=== PATIENT | male | born 1940 | race Caucasian/White ===

== ENCOUNTER 2017-07-06 07:07 | Emergency (ER) | payer OTHER ==
[~2017-07-06] VITALS: Ht 185.4 cm; Wt 99.8 kg
[~2017-07-06 07:07] MED LIST: ASPIRIN81 MG PO; ATORVASTATIN CA20 MG PO; CITRACAL + D E1 EACH PO; CYMBALTA30 MG PO; DAILY VITAMIN1 EAC3 PO; FISH OIL 1,0001 EAC2 PO; GLUCOSAMINE &1 EAC1 PO; MAGNESIUM250 MG PO; MONTELUKAST SOD10 MG PO; ONGLYZA5 MG PO; PLAVIX75 MG PO; RISPERIDONE0.5 MG PO; VITAMIN D1000 UNIT PO; [UNRECOGNIZED DRUG - OTHER]
--- NOTE | 2017-07-06 08:13 | Diagnostic Imaging Report ---
PROCEDURE:X-RAY CHEST, ONE VIEW COMPARISON:Patients [facility], DX, CHEST SINGLE (PORTABLE), 01/19/2015, 3:15. INDICATIONS:COUGH FINDINGS: There are no consolidations, pleural effusions or pneumothorax. The cardiomediastinal silhouette and pulmonary vasculature are normal. Nodular opacity overlies the left midlung zone that is unchanged and printing sales representative of a calcified pleural plaque. There are no acute osseous abnormalities. Degenerative changes of the spine. CONCLUSION: No acute cardiopulmonary abnormality. Eddie Paul D.O. Dictated by: Eddie Paul D.O. on 07/06/2017 at 8:22 Electronically approved by: Eddie Paul D.O. on 07/06/2017 at 8:22
[2017-07-06 08:37] VITALS: BP 135/86
== END 2017-07-06 08:45 | disposition home or self-care (01) ==
LOC: ER 07:07
DX: J10.1 Influenza due to other identified influenza virus with other respiratory manifestations (principal)
CPT/HCPCS: 71010; 87400; 99283

== ENCOUNTER → 2018-04-06 | Day surgery (SDC) | payer OTHER, MEDICARE ==
[~2018-04-06] MED LIST changes: +CYMBALTA30 MG; +FENTANYL CITRATE/PF 100MCG/2 ML INJ ONE; +FISH OIL 1,0001 EAC2; +FLONASE; +LIVALO2 MG; +LYRICA75 MG; +MIDAZOLAM HCL 2 MG/2 ML VIAL ONE; +OR PHACO EYE KIT ONE; +PREOP PHACO EYE KIT ONE; +VENLAFAXINE HCL75 MG PO
--- OUTSIDE RECORDS SUMMARY | 2018-04-06 09:22 | XMS REPORT ---
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 Allergies, Adverse Reactions, Alerts This patient has no known allergies or adverse reactions. Medications This patient has no known medications. Results Test Description Test Time Test Comments Text Results Atomic Results Result Comments CHEST SINGLE (NOT PORTABLE) [place] [address] Patient Name: LEONILA MARQUEZ MR #: [id number] : 1940 Age/Sex: 76/M Req #: [id number] Adm Physician: Ordered by: LUL GARCIA MD Report #: [id number] Location: ER Room/Bed: Procedure: [id number] DX/CHEST SINGLE (NOT PORTABLE) Exam Date: 07/06/17 Exam Time: 0745 REPORT STATUS: Signed PROCEDURE: X-RAY CHEST, ONE VIEW COMPARISON: [facility], , CHEST SINGLE (PORTABLE), 01/19/2015, 3:15. INDICATIONS: COUGH FINDINGS: There are no consolidations, pleural effusions or pneumothorax. The cardiomediastinal silhouette and pulmonary vasculature are normal. Nodular opacity overlies the left midlung zone that is unchanged and medical claims representative of a calcified pleural plaque. There are no acute osseous abnormalities. Degenerative changes of the spine. CONCLUSION: No acute cardiopulmonary abnormality. Rush Paul D.O. Dictated by: Rush Paul D.O. on 07/06/2017 at 8:22 Electronically approved by: Rush Paul D.O. on 07/06/2017 at 8:22 Dictated By: RUSH PAUL DO 1 Transcribed By: VIKAS on 07/06/17821 COPY TO: LUL GARCIA MD
== END | disposition home or self-care (01) ==
LOC: OR 09:19
PROVIDERS: ATTEND Ophthalmology
DX: H25.12 Age-related nuclear cataract, left eye (principal); G62.89 Other specified polyneuropathies; I25.10 Atherosclerotic heart disease of native coronary artery without angina pectoris; E11.9 Type 2 diabetes mellitus without complications; E78.5 Hyperlipidemia, unspecified; K21.9 Gastro-esophageal reflux disease without esophagitis; F41.9 Anxiety disorder, unspecified; F32.9 Major depressive disorder, single episode, unspecified; Z88.1 Allergy status to other antibiotic agents; Z88.8 Allergy status to other drugs, medicaments and biological substances; Z79.84 Long term (current) use of oral hypoglycemic drugs; Z79.82 Long term (current) use of aspirin; Z86.19 Personal history of other infectious and parasitic diseases; Z87.891 Personal history of nicotine dependence
CPT/HCPCS: 66984; J2250; V2632

== ENCOUNTER 2019-02-14 05:00 | Observation (INO) | payer OTHER, MEDICARE ==
[~2019-02-14] VITALS: Ht 185.4 cm; Wt 102.2 kg
[~2019-02-14 05:00] MED LIST changes: -FENTANYL CITRATE/PF 100MCG/2 ML INJ ONE; -MIDAZOLAM HCL 2 MG/2 ML VIAL ONE; -OR PHACO EYE KIT ONE; -PREOP PHACO EYE KIT ONE
--- OUTSIDE RECORDS SUMMARY | 2019-02-14 05:04 | XMS REPORT | Summary of Care ---
Author Author [facility] Organization [facility] Address Unknown Phone Unavailable Encounter TOMÁS Julien(HANS) [id number] Date(s): 10/11/15 - 10/11/15 [facility] [address] [place] [address]- Discharge Disposition: Home Attending Physician: Dario Ramirez MD Admitting Physician: Dario Ramirez MD Vital Signs Most recent to 1 2 oldest [Reference Range]: Height 182.88 cm (10/11/15 12:51 PM) Temperature Oral 97.4 DegF 97.4 DegF [96.4-99.1 DegF] (10/11/15 4:10 PM) (10/11/15 12:53 PM) Blood Pressure 124/71 mmHg [90-140/60-90 mmHg] (10/11/15 4:10 PM) Systolic Blood 123 mmHg Pressure [90-140 (10/11/15 12:53 PM) mmHg] Diastolic Blood 76 mmHg Pressure [60-90 (10/11/15 12:53 PM) mmHg] Respiratory Rate 16 BRMIN 18 BRMIN [14-20 BRMIN] (10/11/15 4:10 PM) (10/11/15 12:53 PM) Peripheral Pulse 84 bpm 76 bpm Rate [60-100 bpm] (10/11/15 4:10 PM) (10/11/15 12:53 PM) Weight 100 kg (10/11/15 12:51 PM) Body Mass Index 29.9 m2 (10/11/15 12:51 PM) Problem List Condition Effective Dates Status Health Status Informant CAD (coronary Resolved atherosclerotic disease)(Confirmed) H/O: rheumatic Resolved fever(Confirmed) Allergies, Adverse Reactions, Alerts Substance Reaction Severity Status NKDA Active Medications aspirin 81 mg, PO, Daily, 0 Refill(s) Start Date: 10/11/15 Status: Ordered aspirin 81 mg tablet, enteric coated 81 mg, 1 tab, Route: PO, Drug form: ECTAB, Daily, Dosing Weight 100, kg, Start d ate: 10/11/15 14:00:00 CDT, Duration: 30 day, Stop date: 11/10/15 9:00:00 CDT Notes: Do not crush or chew.(Same As: Ecotrin) Start Date: 10/11/15 Stop Date: 10/11/15 Status: Discontinued atropine 0.5 mg, 5 mL, Route: IVP, Drug form: INJ, PRN, PRN Bradycardia, Start date: 10/21 13:19:00 CDT, Duration: 30 day, Stop date: 11/10/15 13:18:00 CDT Start Date: 10/11/15 Stop Date: 10/11/15 Status: Discontinued Cymbalta 30 mg, PO, TID, 0 Refill(s) Start Date: 10/11/15 Status: Ordered Livalo 2 mg oral tablet 2 mg=1 tab, PO, Daily, # 30 tab, 3 Refill(s) Start Date: 10/11/15 Status: Ordered magnesium oxide 250 mg oral tablet 500 mg=2 tab, PO, Daily, # 20 tab, 0 Refill(s) Start Date: 10/11/15 Stop Date: 10/21/15 Status: Ordered Mucinex DM 10 mL, Route: PO, Drug Form: SYRP, Dosing Weight 100, kg, ONCE, Start date: 10/21 18:16:00 CDT, Stop date: 10/11/15 18:16:00 CDT Notes: (dextromethorphan-guaifenesin 10-100mg/5ml 10 ml oral SOLN ud) (Same as: Robitussin DM) Start Date: 10/11/15 Stop Date: 10/11/15 Status: Completed nitroglycerin SL Tab 0.4 mg, 1 tab, Route: SL, Drug form: TAB, Q5Min, Dosing Weight 100, kg, PRN Ches t Pain, Start date: 10/11/15 13:01:00 CDT, Duration: 3 doses or times, Stop date : 11/10/15 13:00:00 CDT Notes: (Same as:Nitroquick, Nitrostat)"Do Not Crush" Sublingual tablet Start Date: 10/11/15 Stop Date: 10/11/15 Status: Discontinued Onglyza 5 mg oral tablet 5 mg=1 tab, PO, Daily, # 30 tab, 3 Refill(s) Start Date: 10/11/15 Stop Date: 11/10/15 Status: Ordered Saline Flush 0.9% 10 ml, Route: IVP, Drug Form: INJ, Dosing Weight 100, kg, PRN, PRN Line Flush, S tart date: 10/11/15 13:01:00 CDT, Duration: 30 day, Stop date: 11/10/15 13:00:00 CDT Notes: (Same as: BD Posiflush) Start Date: 10/11/15 Stop Date: 10/11/15 Status: Discontinued Saline Flush 0.9% 10 ml, Route: IVP, Drug Form: INJ, Dosing Weight 100, kg, Q12H, Start date: 10/21 21:00:00 CDT, Duration: 30 day, Stop date: 11/10/15 9:00:00 CDT Notes: (Same as: BD Posiflush) Start Date: 10/11/15 Stop Date: 10/11/15 Status: Discontinued trazodone 25 mg, 0.5 tab, Route: PO, Drug form: TAB, Bedtime, Dosing Weight 100, kg, PRN S leep, Start date: 10/11/15 13:02:00 CDT, Duration: 30 day, Stop date: 11/10/15 1 3:01:00 CDT, .. Notes: (Same As: Krystal) Start Date: 10/11/15 Stop Date: 10/11/15 Status: Discontinued Tylenol 650 mg, 2 tab, Route: PO, Drug form: TAB, Q6H, Dosing Weight 100, kg, PRN Pain S core 1-5, Start date: 10/11/15 13:02:00 CDT, Duration: 30 day, Stop date: 13:01:00 CDT Notes: Do not exceed 4 gm/day. (Same as: Tylenol) Start Date: 10/11/15 Stop Date: 10/11/15 Status: Discontinued Vitamin B12 1,000 microgram, 0 Refill(s) Start Date: 10/11/15 Status: Ordered Vitamin D3 2,000 IntlUnit, PO, Daily, 0 Refill(s) Start Date: 10/11/15 Status: Ordered Results ELECTROLYTES Most recent to 1 2 oldest [Reference Range]: Sodium Lvl [135-145 139 mEq/L mEq/L] (10/11/15 1:19 PM) Potassium Lvl 4.9 mEq/L [3.5-5.1 mEq/L] (10/11/15 1:19 PM) Chloride Lvl [95-109 104 mEq/L mEq/L] (10/11/15 1:19 PM) CO2 [24-32 mEq/L] 28 mEq/L (10/11/15 1:19 PM) AGAP [10.0-20.0 11.9 mEq/L mEq/L] (10/11/15 1:19 PM) CHEM PANEL Most recent to 1 2 oldest [Reference Range]: Creatinine Lvl 0.95 mg/dL [0.50-1.40 mg/dL] (10/11/15 1:19 PM) eGFR 79 mL/min/1.73m2 1 *NA* (10/11/15 1:19 PM) BUN [7-22 mg/dL] 14 mg/dL (10/11/15 1:19 PM) Glucose Lvl [70-99 94 mg/dL mg/dL] (10/11/15 1:19 PM) Total Protein 7.1 g/dL [6.4-8.4 g/dL] (10/11/15 1:19 PM) Albumin Lvl [3.5-5.0 3.8 g/dL g/dL] (10/11/15 1:19 PM) Globulin [2.0-4.0 3.3 g/dL g/dL] (10/11/15 1:19 PM) A/G Ratio [0.7-1.6] 1.2 (10/11/15 1:19 PM) Calcium Lvl 8.3 mg/dL [8.5-10.5 mg/dL] *LOW* (10/11/15 1:19 PM) ALT [0-65 unit/L] 25 unit/L (10/11/15 1:19 PM) AST [0-37 unit/L] 16 unit/L (10/11/15 1:19 PM) Alk Phos [39-136 76 unit/L unit/L] (10/11/15 1:19 PM) Bili Total [0.2-1.3 0.4 mg/dL mg/dL] (10/11/15 1:19 PM) Bili Direct [0.0-0.3 0.2 mg/dL mg/dL] (10/11/15 1:19 PM) Bili Indirect 0.2 mg/dL [0.0-1.0 mg/dL] (10/11/15 1:19 PM) 1Result Comment: The eGFR is calculated using the CKD-EPI formula. In most young, healthy individuals the eGFR will be >90 mL/min/1.73m2. The eGFR declines with age. An eGFR of 60-89 may be normal in some populations, particularly the elderly, for whom the CKD-EPI formula has not been extensively validated. Use of the eGFR is not recommended in the following populations: Individuals with unstable creatinine concentrations, including patients and those with serious co-morbid conditions. Patients with extremes in muscle mass or diet. The data above are obtained from the National Kidney Disease Education Program ( NKDEP) which additionally recommends that when the eGFR is used in patients with extremes of body mass index for purposes of drug dosing, the eGFR should be mul tiplied by the estimated BMI. CARDIAC ENZYMES Most recent to 1 2 oldest [Reference Range]: Total CK [12-191 101 unit/L 101 unit/L unit/L] (10/11/15 7:13 PM) (10/11/15 1:19 PM) CK MB [0.5-3.6 1.4 ng/mL 1.7 ng/mL ng/mL] (10/11/15 7:13 PM) (10/11/15 1:19 PM) CK MB Index 1.4 1.7 [0.0-2.5] (10/11/15 7:13 PM) (10/11/15 1:19 PM) Troponin-I <0.02 ng/mL <0.02 ng/mL [0.00-0.40 ng/mL] (10/11/15 7:13 PM) (10/11/15 1:19 PM) LIPIDS Most recent to 1 2 oldest [Reference Range]: CHD Risk [4.00-7.30] 5.22 (10/11/15 1:19 PM) Chol [<=199 mg/dL] 193 mg/dL (10/11/15 1:19 PM) Trig [<=149 mg/dL] 338 mg/dL *HI* (10/11/15 1:19 PM) HDL [>=61 mg/dL] 37 mg/dL *LOW* (10/11/15:19 PM) LDL (Calculated) 88 mg/dL [<=99 mg/dL] (10/11/15 1:19 PM) VLDL 68 *NA* (10/11/15 1:19 PM) HEMATOLOGY Most recent to 1 2 oldest [Reference Range]: WBC [3.7-10.4 K/CMM] 7.9 K/CMM (10/11/15 1:19 PM) RBC [4.70-6.10 5.01 M/CMM M/CMM] (10/11/15 1:19 PM) Hgb [14.0-18.0 g/dL] 14.5 g/dL (10/11/15 1:19 PM) Hct [42.0-54.0 %] 44.9 % (10/11/15 1:19 PM) MCV [80.0-94.0 fL] 89.7 fL (10/11/15 1:19 PM) MCH [27.0-31.0 pg] 28.9 pg (10/11/15 1:19 PM) MCHC [32.0-36.0 32.2 g/dL g/dL] (10/11/15 1:19 PM) RDW [11.5-14.5 %] 15.1 % *HI* (10/11/15 1:19 PM) Platelet [133-450 190 K/CMM K/CMM] (10/11/15 1:19 PM) MPV [7.4-10.4 fL] 7.2 fL *LOW* (10/11/15 1:19 PM) Segs [45.0-75.0 %] 60.6 % (10/11/15 1:19 PM) Lymphocytes 16.8 % [20.0-40.0 %] *LOW* (10/11/15 1:19 PM) Monocytes [2.0-12.0 10.4 % %] (10/11/15 1:19 PM) Eosinophils [0.0-4.0 11.4 % %] *HI* (10/11/15 1:19 PM) Basophils [0.0-1.0 0.8 % %] (10/11/15 1:19 PM) Segs-Bands # 4.8 K/CMM [1.5-8.1 K/CMM] (10/11/15 1:19 PM) Lymphocytes # 1.3 K/CMM [1.0-5.5 K/CMM] (10/11/15 1:19 PM) Monocytes # [0.0-0.8 0.8 K/CMM K/CMM] (10/11/15 1:19 PM) Eosinophils # 0.9 K/CMM [0.0-0.5 K/CMM] *HI* (10/11/15 1:19 PM) Basophils # [0.0-0.2 0.1 K/CMM K/CMM] (10/11/15 1:19 PM) PT [12.0-14.7 13.6 seconds seconds] (10/11/15 1:19 PM) INR [0.85-1.17] 1.01 (10/11/15 1:19 PM) PTT [22.9-35.8 39.8 seconds seconds] *HI* (10/11/15 1:19 PM) Immunizations No data available for this section Procedures Procedure Date Related Diagnosis Body Site Hernia repair Stent placement Social History Social History Type Response Alcohol Past Smoking Status Never smoker; Exposure to Tobacco Smoke None; Cigarette Smoking Last 365 Days No; Reg Smoking Cessation Counseling Yes Assessment and Plan Extracted from: Title: Clinical Document Author: Dario Ramirez MD Date: 10/11/15 The patient presented with chest pain and underwent cardiac evaluation. The chest pain resolved and the ECG and cardiac enzymes remained negative. The patient was subsequently discharged home in stable condition. No new meds prescribed at this time Cardiac diet Regular activity F/U in 1-2 weeks in office Addendum We will do echo and other outpt evaluation in office. by Dario Ramirez MD on 10/11/2015 17:48
--- OUTSIDE RECORDS SUMMARY | 2019-02-14 05:04 | XMS REPORT | Continuity of Care Document ---
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) Active Problem 01/24/2019 [facility] Atherosclerosis of coronary artery (disorder) Resolved Problem 01/24/2019 [facility], [facility] History of - rheumatic fever (context-dependent category) Resolved Problem 01/24/2019 [facility], [facility] Nocturia (finding) Active Problem 01/24/2019 [facility] Raised prostate specific antigen (finding) Active Problem 01/24/2019 [facility] Simple obesity (disorder) Active Problem 01/24/2019 [facility] Urge incontinence of urine (finding) Active Problem 01/24/2019 [facility] Urgent desire to urinate (finding) Active Problem 01/24/2019 [facility] LUMBAR STENOSIS Active [facility] PAIN Active [facility] LBP Active [facility] Medications Medication Details Route Status Patient Instructions Ordering Provider Order Date Source Levofloxacin 500 MG Oral Tablet [Levaquin] 500 mg=1 tab, PO, Q24H, Start 3 days prior to procedure, X 5 day, # 5 tab, 0 Refill(s), Pharmacy: [facility] No Longer Active 07/06/2018 [facility] tamsulosin 0.4 mg oral capsule 0.4 mg=1 cap, PO, Daily, # 30 cap, 11 Refill(s), Pharmacy: [facility] [place] Active 07/01/2018 [facility] tamsulosin 0.4 mg oral capsule 0.4 mg=1 cap, PO, Daily, # 30 cap, 6 Refill(s) No Longer Active 06/29/2018 [facility] Fish Oil PO, 0 Refill(s) Active 06/29/2018 [facility] Afrin Pump Mist NASAL, BID, 0 Refill(s) Active 06/29/2018 [facility] cetirizine hydrochloride 10 MG Oral Capsule [Zyrtec] 10 mg=1 cap, PO, Daily, 0 Refill(s) Active 06/29/2018 [facility] Saline Flush 0.9% 10 ml, Route: IVP, Drug Form: INJ, Dosing Weight 100, kg, Q12H, Start date: 10/11/15 21:00:00 CDT, Duration: 30 day, Stop date: 11/10/15 9:00:00 CDTNotes: (Same as: BD Posiflush) Inactive 10/12/2015 [facility] Mucinex DM 10 mL, Route: PO, Drug Form: SYRP, Dosing Weight 100, kg, ONCE, Start date: 10/11/15 18:16:00 CDT, Stop date: 10/11/15 18:16:00 CDTNotes: (dextromethorphan-guaifenesin 10-100mg/5ml 10 ml oral SOLN ud) (Same as: Robitussin DM) Inactive 10/11/2015 [facility] Aspirin 81 MG Enteric Coated Tablet 81 mg, 1 tab, Route: PO, Drug form: ECTAB, Daily, Dosing Weight 100, kg, Start date: 10/11/15 14:00:00 CDT, Duration: 30 day, Stop date: 11/10/15 9:00:00 CDTNotes: Do not crush or chew. (Same As: Ecotrin) Inactive 10/11/2015 [facility] atropine 0.5 mg, 5 mL, Route: IVP, Drug form: INJ, PRN, PRN Bradycardia, Start date: 10/11/15 13:19:00 CDT, Duration: 30 day, Stop date: 11/10/15 13:18:00 CDT Inactive 10/11/2015 [facility] Vitamin B12 1,000 microgram, 0 Refill(s) Active 10/11/2015 [facility] saxagliptin 5 MG Oral Tablet [Onglyza] 5 mg=1 tab, PO, Daily, # 30 tab, 3 Refill(s) Active 10/11/2015 [facility] Aspirin 81 mg, PO, Daily, 0 Refill(s) Active 10/11/2015 [facility] magnesium oxide 250 mg oral tablet 500 mg=2 tab, PO, Daily, # 20 tab, 0 Refill(s) Active 10/11/2015 [facility] Vitamin D3 2,000 IntlUnit, PO, Daily, 0 Refill(s) Active 10/11/2015 [facility] pitavastatin 2 MG Oral Tablet [Livalo] 2 mg=1 tab, PO, Daily, # 30 tab, 3 Refill(s) Active 10/11/2015 [facility] Cymbalta 30 mg, PO, TID, 0 Refill(s) Active 10/11/2015 [facility] Trazodone 25 mg, 0.5 tab, Route: PO, Drug form: TAB, Bedtime, Dosing Weight 100, kg, PRN Sleep, Start date: 10/11/15 13:02:00 CDT, Duration: 30 day, Stop date: 11/10/15 13:01:00 CDT, ..Notes: (Same As: Desyrel) Inactive 10/11/2015 [facility] Tylenol 650 mg, 2 tab, Route: PO, Drug form: TAB, Q6H, Dosing Weight 100, kg, PRN Pain Score 1-5, Start date: 10/11/15 13:02:00 CDT, Duration: 30 day, Stop date: 11/10/15 13:01:00 CDTNotes: Do not exceed 4 gm/day. (Same as: Tylenol) Inactive 10/11/2015 [facility] Saline Flush 0.9% 10 ml, Route: IVP, Drug Form: INJ, Dosing Weight 100, kg, PRN, PRN Line Flush, Start date: 10/11/15 13:01:00 CDT, Duration: 30 day, Stop date: 11/10/15 13:00:00 CDTNotes: (Same as: BD Posiflush) Inactive 10/11/2015 [facility] Nitroglycerin 0.4 mg, 1 tab, Route: SL, Drug form: TAB, Q5Min, Dosing Weight 100, kg, PRN Chest Pain, Start date: 10/11/15 13:01:00 CDT, Duration: 3 doses or times, Stop date: 11/10/15 13:00:00 CDTNotes: (Same as:Nitroquick, Nitrostat) "Do Not Crush" Sublingual tablet Inactive 10/11/2015 [facility] Allergies, Adverse Reactions, Alerts Substance Category Reaction Severity Reaction type Status Date Reported Comments Source No Known Medication Allergies Assertion Drug allergy Medical Group Immunizations No Data Provided for This Section Results Order Name Results Value Reference Range Date Interpretation Comments Source CHEM PANEL eGFR 83 02/25/2017 Result Comment: The eGFR is calculated using the [...] from the National Kidney Disease Education Program (NKDEP) which additionally recommends that when the eGFR is used in patients with extremes of body mass index for purposes of drug dosing, the eGFR should be multiplied by the estimated BMI. [facility] CHEM PANEL POC Creatinine 0.9 0.5 - 1.4 02/25/2017 [facility] CARDIAC ENZYMES CK MB 1.4 0.5 - 3.6 10/12/2015 [facility] CARDIAC ENZYMES CK MB Index 1.4 0.0 - 2.5 10/12/2015 [facility] CARDIAC ENZYMES Total CK 101 12 - 191 10/12/2015 [facility] CARDIAC ENZYMES Troponin-I <0.02 0.00 - 0.40 10/12/2015 [facility] CARDIAC ENZYMES CK MB Index 1.7 0.0 - 2.5 10/11/2015 [facility] CARDIAC ENZYMES Troponin-I <0.02 0.00 - 0.40 10/11/2015 [facility] CARDIAC ENZYMES Total CK 101 12 - 191 10/11/2015 [facility] CARDIAC ENZYMES CK MB 1.7 0.5 - 3.6 10/11/2015 [facility] CHEM PANEL eGFR 79 10/11/2015 Result Comment: The eGFR is calculated using the [...] from the National Kidney Disease Education Program (NKDEP) which additionally recommends that when the eGFR is used in patients with extremes of body mass index for purposes of drug dosing, the eGFR should be multiplied by the estimated BMI. [facility] CHEM PANEL BUN 14 7 - 22 10/11/2015 [facility] CHEM PANEL Glucose Lvl 94 70 - 99 10/11/2015 [facility] CHEM PANEL Sodium Lvl 139 135 - 145 10/11/2015 [facility] CHEM PANEL Creatinine Lvl 0.95 0.50 - 1.40 10/11/2015 [facility] CHEM PANEL Potassium Lvl 4.9 3.5 - 5.1 10/11/2015 [facility] CHEM PANEL CO2 28 24 - 32 10/11/2015 [facility] CHEM PANEL Chloride Lvl 104 95 - 109 10/11/2015 [facility] CHEM PANEL Calcium Lvl 8.3 8.5 - 10.5 10/11/2015 [facility] CHEM PANEL AGAP 11.9 10.0 - 20.0 10/11/2015 [facility] CHEM PANEL Bili Indirect 0.2 0.0 - 1.0 10/11/2015 [facility] CHEM PANEL Globulin 3.3 2.0 - 4.0 10/11/2015 [facility] CHEM PANEL A/G Ratio 1.2 0.7 - 1.6 10/11/2015 [facility] CHEM PANEL Bili Direct 0.2 0.0 - 0.3 10/11/2015 [facility] CHEM PANEL Bili Total 0.4 0.2 - 1.3 10/11/2015 [facility] CHEM PANEL Total Protein 7.1 6.4 - 8.4 10/11/2015 [facility] CHEM PANEL Albumin Lvl 3.8 3.5 - 5.0 10/11/2015 [facility] CHEM PANEL AST 16 0 - 37 10/11/2015 [facility] CHEM PANEL Alk Phos 76 39 - 136 10/11/2015 [facility] CHEM PANEL ALT 25 0 - 65 10/11/2015 [facility] HEMATOLOGY INR 1.01 0.85 - 1.17 10/11/2015 [facility] HEMATOLOGY PT 13.6 12.0 - 14.7 10/11/2015 [facility] HEMATOLOGY PTT 39.8 22.9 - 35.8 10/11/2015 [facility] HEMATOLOGY MCHC 32.2 32.0 - 36.0 10/11/2015 [facility] HEMATOLOGY MCH 28.9 27.0 - 31.0 10/11/2015 [facility] HEMATOLOGY Platelet 190 133 - 450 10/11/2015 [facility] HEMATOLOGY RDW 15.1 11.5 - 14.5 10/11/2015 [facility] HEMATOLOGY MCV 89.7 80.0 - 94.0 10/11/2015 [facility] HEMATOLOGY MPV 7.2 7.4 - 10.4 10/11/2015 [facility] HEMATOLOGY RBC 5.01 4.70 - 6.10 10/11/2015 [facility] HEMATOLOGY WBC 7.9 3.7 - 10.4 10/11/2015 [facility] HEMATOLOGY Hgb 14.5 14.0 - 18.0 10/11/2015 [facility] HEMATOLOGY Hct 44.9 42.0 - 54.0 10/11/2015 [facility] HEMATOLOGY Monocytes # 0.8 0.0 - 0.8 10/11/2015 [facility] HEMATOLOGY Eosinophils # 0.9 0.0 - 0.5 10/11/2015 [facility] HEMATOLOGY Basophils # 0.1 0.0 - 0.2 10/11/2015 [facility] HEMATOLOGY Segs 60.6 45.0 - 75.0 10/11/2015 [facility] HEMATOLOGY Lymphocytes 16.8 20.0 - 40.0 10/11/2015 [facility] HEMATOLOGY Monocytes 10.4 2.0 - 12.0 10/11/2015 [facility] HEMATOLOGY Eosinophils 11.4 0.0 - 4.0 10/11/2015 [facility] HEMATOLOGY Basophils 0.8 0.0 - 1.0 10/11/2015 [facility] HEMATOLOGY Segs-Bands # 4.8 1.5 - 8.1 10/11/2015 [facility] HEMATOLOGY Lymphocytes # 1.3 1.0 - 5.5 10/11/2015 [facility] CHD Risk 5.22 4.00 - 7.30 10/11/2015 [facility] LIPIDS VLDL 68 10/11/2015 [facility] LIPIDS LDL (Calculated) 88 <=99 mg/dL 10/11/2015 [facility] LIPIDS Trig 338 <=149 mg/dL 10/11/2015 [facility] LIPIDS Chol 193 <=199 mg/dL 10/11/2015 [facility] LIPIDS HDL 37 >=61 mg/dL 10/11/2015 [facility] Pathology Reports No Data Provided for This Section Diagnostic Reports Report Value Date Source Abdomen/Pelvis w/wo IV contrast CT Study: Abdomen/Pelvis w/wo IV contrast CT Clinical Indication: ct dlp 2386 mGycm; 100 cc omni IV \\T\\ 25 cc omni PO - weight loss; abdomen pain Comparison: None TECHNIQUE: Multiple axial CT images of the abdomen and pelvis were acquired before and after the administration of intravenous contrast. Oral contrast was administered to the patient. Sagittal and coronal reformatted images were performed. CT Radiation Dose DLP 2386 mGy-cm FINDINGS: The visualized lung bases are clear bilaterally. The liver, gallbladder, pancreas, spleen, kidneys, and adrenal glands have a normal CT appearance. No intrahepatic or extrahepatic biliary duct dilatation is seen. Urinary bladder is unremarkable. Prostate is enlarged. Scattered sigmoid diverticula are seen without inflammatory change to suggest acute diverticulitis. The remaining visualized hollow viscera and appendix are normal in appearance. No free air, free fluid, or pathologic adenopathy is seen. Arterial calcifications are noted. Superficial soft tissues are unremarkable. Degenerative disc disease with advanced facet arthrosis in the lower lumbar spine is seen. IMPRESSION: 1. No acute intra-abdominal/pelvic abnormality. 2. Sigmoid diverticulosis without acute diverticulitis. 3. No evidence of malignancy or metastatic disease to the abdomen/pelvis. SL: [id number] 02/25/2017 [facility] Brain wo contrast CT CT BRAIN WITHOUT CONTRAST INDICATION: Blurry vision; dizziness, Patient states he's almost passed out while driving. Hx of sinus problems and infections., CT DLP: 893 MGY-CM COMPARISON: None DISCUSSION: There are age-appropriate generalized involutional changes of the brain and microangiopathic changes of the white matter. There is no evidence of acute vascular insults, space occupying lesions, hemorrhage, hydrocephalus, midline shift, or extra-axial fluid collections. The calvarium is intact. Mucosal thickening is noted throughout the paranasal sinuses, associated with bony changes of chronic sinusitis. IMPRESSION: Chronic age-related changes of the brain. No acute intracranial abnormalities are visualized. SL:16 06/25/2016 [facility] Spine lumbar wo contrast MRI EXAM: MRI LUMBAR SPINE WITHOUT CONTRAST DATE: 2015 8:10 AM CDT . CLINICAL INDICATION: Low back pain with left-sided sciatica . TECHNIQUE: Multiplanar, multisequence MRI lumbar spine without IV contrast COMPARISON: Unavailable FINDINGS: The lumbar vertebral bodies have normal height, shape, and alignment. There is no worrisome marrow signal abnormality. The conus terminates normally at L1-L2. The paravertebral soft tissues are within normal limits. Disc spaces, spinal canal, and neural foramina: Short lumbar pedicles leading to baseline narrowing of the central canal T12-L1. Intervertebral disc height and signal are maintained. Posterior elements are normal. There is no stenosis. L1-L2. Mild loss of intervertebral disc height with small diffuse disc bulge. Facets are mildly enlarged. Central canal is patent. Lateral recesses are mildly narrowed with disc contacting each descending L2 nerve root. Neural foramina are patent. L2-L3. Intervertebral discs dehydrated without height loss. There is small diffuse disc bulge and small 2 mm asymmetric right subarticular zone protrusion. Facets are hypertrophic with ligamentous redundancy. Central canal measures 8 mm without crowding of the cauda equina. Right lateral recess is narrowed with disc protrusion dorsally displacing the right descending L3 nerve root. There is mild/moderate stenosis of the neural foramina bilaterally without L2 nerve root mass effect. L3-L4. Intervertebral discs dehydrated without substantial height loss. The small diffuse disc bulge. Facets are hypertrophic with ligamentous redundancy. Central canal measures 5 mm with slight crowding of the cauda equina. Lateral recesses are narrowed bilaterally, asymmetric to the right with mild mass effect on each descending L4 nerve root. There is moderate stenosis of the neural foramina, asymmetric to the right with no compression of the L3 nerve roots. L4-L5. There is severe facet hypertrophy asymmetric to the left, including a 6 mm craniocaudal dimension synovial cyst.. Right laminotomy is suspected. There is loss of intervertebral disc height and signal with moderate diffuse disc bulge and superimposed left subarticular zone extrusion measuring 5 mm AP with 14 mm superiorly extruded fragment extending 75% of the L4 vertebral body. Central canal is narrowed to 7 mm without cauda equina crowding. Left lateral recess is completely effaced with mass effect on the left descending L5 and S1 nerve roots. There is moderate to severe stenosis of the neural foramina bilaterally, asymmetric to left. L5-S1. Intervertebral disc height and signal are maintained. Facets are hypertrophic bilaterally.. Central canal measures 9 mm without cauda equina crowding. Lateral recesses are narrowed with disc and facets contacting each S1 nerve root. There is [id number] neural foramen stenosis bilaterally. IMPRESSION: 1. L4-L5 facet hypertrophy, disc bulge, and superior extrusion causes mild, degenerative central canal stenosis and moderate to severe stenosis of the neural foramina bilaterally, asymmetric to left. There is a 6 mm left-sided facet synovial cyst. 2. Moderate L3-L4 central canal stenosis and neural foramen stenosis related to facet hypertrophy 3. Short pedicles 4. Please see additional comments above 2015 [facility] Consultation Notes No Data Provided for This Section Discharge Summaries No Data Provided for This Section History and Physicals No Data Provided for This Section Vital Signs Vital Sign Value Date Comments Source Systolic (mm Hg) 119 07/06/2018 [facility] Diastolic (mm Hg) 67 07/06/2018 [facility] Heart Rate 101 07/06/2018 [facility] Height 182.88 cm 07/06/2018 [facility] Weight 102.415 07/06/2018 [facility] BMI Calculated 30.62 07/06/2018 [facility] Weight 106.449 06/29/2018 [facility] BMI Calculated 31.83 06/29/2018 [facility] Heart Rate 98 06/29/2018 [facility] Systolic (mm Hg) 118 06/29/2018 [facility] Diastolic (mm Hg) 80 06/29/2018 [facility] Height 182.88 cm 06/29/2018 [facility] Heart Rate 84 10/11/2015 [facility] Respitory Rate 16 10/11/2015 [facility] Systolic (mm Hg) 124 10/11/2015 [facility] Diastolic (mm Hg) 71 10/11/2015 [facility] Temperature Oral (F) 97.4 F 10/11/2015 [facility] Diastolic (mm Hg) 76 10/11/2015 [facility] Systolic (mm Hg) 123 10/11/2015 [facility] Temperature Oral (F) 97.4 F 10/11/2015 [facility] Respitory Rate 18 10/11/2015 [facility] Heart Rate 76 10/11/2015 [facility] Height 182.88 cm 10/11/2015 [facility] Weight 100 10/11/2015 [facility] BMI Calculated 29.9 10/11/2015 [facility] Encounters Location Location Details Encounter Type Encounter Number Reason For Visit Attending Provider ADM Date DC Date Status Source [facility] OBS Observation Patient [id number] Dario Ramirez 10/11/2015 10/12/2015 [facility] Di[facility] Services [id number] Almas Manning Jr 2015 11/14/2015 [facility] OP Therapy Patients [id number] Almas Manning Jr 12/26/2015 01/25/2016 [facility] OP Therapy Patients [id number] Almas Manning Jr 01/30/2016 02/29/2016 [facility] OP Therapy Patients [id number] Almas Manning Jr 03/05/2016 04/04/2016 [facility] OP Therapy Patients [id number] Almas Manning Jr 04/09/2016 05/09/2016 [facility] Outpatient [id number] Aslam Arriaga 06/25/2016 06/26/2016 [facility] Outpatient [id number] Aslam Arriaga 02/25/2017 02/26/2017 [facility] [id number] Michael Howepr 03/22/2018 03/22/2018 [facility] Outpatient [id number] TERRIE MARQUEZ 06/29/2018 Active [facility] Urology [facility] Outpatient [id number] Terrie Marquez 06/29/2018 06/30/2018 [facility] Outpatient [id number] NURSE VISIT 07/01/2018 Active [facility] Ambulatory Pre-Reg [id number] Aslam Arriaga 07/01/2018 07/02/2018 [facility] Outpatient [id number] TERRIE MARQUEZ 07/06/2018 Active [facility] Urology [facility] Outpatient [id number] Terrie Marquez 07/06/2018 07/07/2018 [facility] Outpatient [id number] NURSE VISIT 08/13/2018 Active [facility] Outpatient [id number] TERRIE MARQUEZ 08/13/2018 Active [facility] Outpatient [id number] TERRIE MARQUEZ 08/30/2018 Active [facility] Procedures Procedure Code Date Perfomer Comments Source Measurement of post-voiding residual urine and/or bladder capacity by ultrasound, non-imaging 47548 07/01/2018 [facility] Complex uroflowmetry (eg, calibrated electronic equipment) 20696 07/01/2018 [facility] Hernia repair [id number] [facility] Stent placement [id number] [facility] Assessment and Plan Assessment and Plan Date Source Extracted from:Title: Clinical Document Author: Dario Ramirez MD Date: 10/11/15 The patient presented with chest pain and underwent cardiac evaluation. The chest pain resolved and the ECG and cardiac enzymes remained negative. The patient was subsequently discharged home in stable condition. No new meds prescribed at this time Cardiac diet Regular activity F/U in 1-2 weeks in office Addendum by Dario Ramirez MD on 10/11/2015 17:48 We will do echo and other outpt evaluation in office. 10/12/2015 [facility] Plan of Care No Data Provided for This Section Social History Social History Date Source Social History TypeResponse Alcohol Past Smoking Status Never smoker; Exposure to Tobacco Smoke None; Cigarette Smoking Last 365 Days No; Reg Smoking Cessation Counseling Yes 10/11/2015 [facility] Social History TypeResponse Alcohol Past Smoking Status Never smoker; Exposure to Tobacco Smoke None; Cigarette Smoking Last 365 Days No; Reg Smoking Cessation Counseling Yes 10/11/2015 [facility] Social History TypeResponse Alcohol Past Smoking Status Never smoker; Exposure to Tobacco Smoke None; Cigarette Smoking Last 365 Days No; Reg Smoking Cessation Counseling Yes 10/11/2015 [facility] Social History TypeResponse Alcohol Past Smoking Status Never smoker; Exposure to Tobacco Smoke None; Cigarette Smoking Last 365 Days No; Reg Smoking Cessation Counseling Yes entered on: 07/06/18 10/11/2015 [facility] Family History No Data Provided for This Section Advance Directives No Data Provided for This Section Functional Status No Data Provided for This Section
--- OUTSIDE RECORDS SUMMARY | 2019-02-14 05:04 | XMS REPORT | Summary of Care ---
Author Author [facility] Organization [facility] Address Unknown Phone Unavailable Encounter HQ Lila_alvin(FIN) [id number] Date(s): 11/13/15 - 11/13/15 [facility] [place] [address] [place], [place] [address] [phone] Discharge Disposition: Home Attending Physician: Almas Delong MD Vital Signs No data available for this section Problem List Condition Effective Dates Status Health Status Informant CAD (coronary Resolved atherosclerotic disease)(Confirmed) H/O: rheumatic Resolved fever(Confirmed) Allergies, Adverse Reactions, Alerts Substance Reaction Severity Status NKDA Active Medications No data available for this section Results No data available for this section Immunizations No data available for this section Procedures Procedure Date Related Diagnosis Body Site Hernia repair Stent placement Social History Social History Type Response Alcohol Past Smoking Status Never smoker; Exposure to Tobacco Smoke None; Cigarette Smoking Last 365 Days No; Reg Smoking Cessation Counseling Yes Assessment and Plan No data available for this section
--- OUTSIDE RECORDS SUMMARY | 2019-02-14 05:04 | XMS REPORT | Summary of Care ---
Author Author [facility] Address Unknown Phone Unavailable Encounter HQ Candicer_alvin(FIN) [id number] Date(s): 12/26/15 - 01/24/16 [facility] Discharge Disposition: Home or Self Care Attending Physician: Amlas Delong MD Vital Signs No data available [...]
--- OUTSIDE RECORDS SUMMARY | 2019-02-14 05:04 | XMS REPORT | Summary of Care ---
Author Author [facility] Address Unknown Phone Unavailable Encounter HQ Lila_alvin(FIN) [id number] Date(s): 01/30/16 - 02/28/16 [facility] Discharge Disposition: Home or Self Care Attending Physician: Almas Delong MD Vital Signs [...]
--- OUTSIDE RECORDS SUMMARY | 2019-02-14 05:05 | XMS REPORT | Summary of Care ---
Author Author [facility] Organization [facility] Address Unknown Phone Unavailable Encounter HQ Lila_alvin(FIN) [id number] Date(s): 03/22/18 - 03/22/18 [facility] [address] [place], [place] [id number]- Attending Physician: Michael Clifford MD Referring Physician: West Arriaga MD Vital Signs No data available for this section Problem List Condition Effective Dates Status Health Status Informant 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) H/O: rheumatic Resolved fever(Confirmed) Nocturia(Confirmed) Active Elevated Active PSA(Confirmed) Simple Active obesity(Confirmed) Urinary Active incontinence, urge(Confirmed) Urinary Active urgency(Confirmed) Allergies, Adverse Reactions, Alerts No Known Medication Allergies Medications No data available for this section Results No data available for this section Immunizations No data available for this section Procedures Procedure Date Related Diagnosis Body Site Status Hernia repair Completed Stent placement Completed Social History Social History Type Response Alcohol Past Smoking Status Never smoker; Exposure to Tobacco Smoke None; Cigarette Smoking Last 365 Days No; Reg Smoking Cessation Counseling Yes entered on: 07/06/18 Assessment and Plan No data available for this section
--- OUTSIDE RECORDS SUMMARY | 2019-02-14 05:05 | XMS REPORT | Summary of Care ---
Author Author [facility] Organization [facility] Address Unknown Phone Unavailable Encounter HQ Wily(FIN) [id number] Date(s): 06/29/18 - 06/29/18 [facility] [address] [place] [address]- Discharge Disposition: Home or Self Care Attending Physician: Vic Marquez MD Referring Physician: West Arriaga MD Vital Signs Most recent to 1 oldest [Reference Range]: Height 182.88 cm (06/29/18 8:55 AM) Blood Pressure 118/80 mmHg [90-140/60-90 mmHg] (06/29/18 8:55 AM) Peripheral Pulse 98 bpm Rate [60-100 bpm] (06/29/18 8:55 AM) Weight 106.449 kg (06/29/18 8:55 AM) Body Mass Index 31.83 m2 (06/29/18 8:55 AM) Problem List Condition Effective Dates Status Health Status Informant 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) H/O: rheumatic Resolved fever(Confirmed) Nocturia(Confirmed) Active Elevated Active PSA(Confirmed) Simple Active obesity(Confirmed) Urinary Active incontinence, urge(Confirmed) Urinary Active urgency(Confirmed) Allergies, Adverse Reactions, Alerts No Known Medication Allergies Medications Afrin Pump Mist NASAL, BID, 0 Refill(s) Start Date: 06/29/18 Status: Ordered Fish Oil PO, 0 Refill(s) Start Date: 06/29/18 Status: Ordered tamsulosin 0.4 mg oral capsule 0.4 mg=1 cap, PO, Daily, # 30 cap, 6 Refill(s) Start Date: 06/29/18 Stop Date: 07/01/18 Status: Completed ZyrTEC Liquid Gels 10 mg oral capsule 10 mg=1 cap, PO, Daily, 0 Refill(s) Start Date: 06/29/18 Status: Ordered Results No data available for this section [...]
--- OUTSIDE RECORDS SUMMARY | 2019-02-14 05:05 | XMS REPORT | Summary of Care ---
Author Author [facility] Organization [facility] Address Unknown Phone Unavailable Encounter TOMÁS Julien(HANS) [id number] Date(s): 02/25/17 - 02/25/17 [facility] [address] [place] [address]- [phone] Discharge Disposition: Home or Self Care Attending Physician: West Arriaga MD Referring Physician: West Arriaga MD Vital Signs No data available for this section Problem List Condition Effective Dates Status Health Status Informant CAD (coronary Resolved atherosclerotic disease)(Confirmed) H/O: rheumatic Resolved fever(Confirmed) Allergies, Adverse Reactions, Alerts Substance Reaction Severity Status NKDA Active Medications No data available for this section Results CHEM PANEL Most recent to 1 oldest [Reference Range]: eGFR 83 mL/min/1.73m2 1 *NA* (02/25/17 10:07 AM) POC Creatinine 0.9 mg/dL [0.5-1.4 mg/dL] (02/25/17 10:07 AM) 1Result Comment: The eGFR is calculated using [...] be mul tiplied by the estimated BMI. Immunizations No data available for this section Procedures Procedure Date Related Diagnosis Body Site Hernia repair Stent placement Social History Social History Type Response Alcohol Past Smoking Status Never smoker; Exposure to Tobacco Smoke None; Cigarette Smoking Last 365 Days No; Reg Smoking Cessation Counseling Yes Assessment and Plan No data available for this section
--- OUTSIDE RECORDS SUMMARY | 2019-02-14 05:05 | XMS REPORT | Summary of Care ---
Author Author [facility] Organization [facility] Address Unknown Phone Unavailable Encounter TOMÁS Julien(FIN) [id number] Date(s): 07/06/18 - 07/06/18 [facility] [address] [place] [address]- Discharge Disposition: Home or Self Care Attending Physician: Vic Marquez MD Referring Physician: West Arriaga MD Vital Signs Most recent to 1 oldest [Reference Range]: Height 182.88 cm (07/06/18 10:47 AM) Blood Pressure 119/67 mmHg [90-140/60-90 mmHg] (07/06/18 10:47 AM) Peripheral Pulse 101 bpm Rate [60-100 bpm] *HI* (07/06/18 10:47 AM) Weight 102.415 kg (07/06/18 10:47 AM) Body Mass Index 30.62 m2 (07/06/18 10:47 AM) Problem List Condition Effective Dates Status Health Status Informant 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) H/O: rheumatic Resolved fever(Confirmed) Nocturia(Confirmed) Active Elevated Active PSA(Confirmed) Simple Active obesity(Confirmed) Urinary Active incontinence, urge(Confirmed) Urinary Active urgency(Confirmed) Allergies, Adverse Reactions, Alerts No Known Medication Allergies Medications Levaquin 500 mg oral tablet 500 mg=1 tab, PO, Q24H, Start 3 days prior to procedure, X 5 day, # 5 tab, 0 Ref ill(s), Pharmacy: [facility] Start Date: 07/06/18 Stop Date: 07/11/18 Status: Completed tamsulosin 0.4 mg oral capsule 0.4 mg=1 cap, PO, Daily, # 30 cap, 11 Refill(s), Pharmacy: [facility] k Start Date: 07/01/18 Status: Ordered Results No data available for [...]
--- OUTSIDE RECORDS SUMMARY | 2019-02-14 05:05 | XMS REPORT | Summary of Care ---
Author Author [facility] Organization [facility] Address Unknown Phone Unavailable Encounter HQ Wily(HANS) [id number] Date(s): 06/25/16 - 06/25/16 [facility] [address] [place] [address] Discharge Disposition: Home or Self Care Attending Physician: West Arriaga MD Admitting Physician: West Arriaga MD Referring Physician: West [...]
--- OUTSIDE RECORDS SUMMARY | 2019-02-14 05:05 | XMS REPORT | Summary of Care ---
Author Author [facility] Address Unknown Phone Unavailable Encounter HQ Candicer_alvin(FIN) [id number] Date(s): 04/09/16 - 05/08/16 [facility] Discharge Disposition: Home or Self Care [...]
--- OUTSIDE RECORDS SUMMARY | 2019-02-14 05:05 | XMS REPORT | Summary of Care ---
Author Author [facility] Address Unknown Phone Unavailable Encounter HQ Candicer_alvin(FIN) [id number] Date(s): 03/05/16 - 04/03/16 [facility] Discharge Disposition: Home or Self Care Attending [...]
--- OUTSIDE RECORDS SUMMARY | 2019-02-14 05:05 | XMS REPORT | Summary of Care ---
Author Author [facility] Urology [facility] Organization [facility] Address Unknown Phone Unavailable Encounter HQ Encntr_alirudy(FIN) [id number] Date(s): 07/01/18 - 07/01/18 [facility] [address] [place] [address] [phone] Discharge Disposition: Home or Self Care Attending [...] Procedure Date Related Diagnosis Body Site Status Complex uroflowmetry (eg, calibrated 07/01/18 Completed electronic equipment) Measurement of post-voiding residual urine 07/01/18 Completed and/or bladder capacity by ultrasound, non-imaging Hernia repair Completed Stent placement Completed Social History Social History Type Response Alcohol Past Smoking Status Never smoker; Exposure to Tobacco Smoke None; Cigarette Smoking Last 365 Days No; Reg Smoking Cessation Counseling Yes entered on: 07/06/18 Assessment and Plan No data available for this section
[2019-02-14 05:43] LABS: BASOPHILS # (AUTO) 0.1 (0.0-0.1); EOSINOPHILS # (AUTO) 0.4 (0.0-0.4); HEMATOCRIT 43.5 % (38.2-49.6); HEMOGLOBIN 14.4 g/dL (14.0-18.0); LYMPHOCYTES # (AUTO) 2.1 (1.0-3.2); LYMPHOCYTES % 36.7 % (18.0-39.1); MEAN CORPUSCULAR HEMOGLOBIN 29.2 pg (28-32); MEAN CORPUSCULAR HGB CONC 33.1 g/dL (31-35); MEAN CORPUSCULAR VOLUME 88.2 fL (81-99); MONOCYTES # (AUTO) 0.6 (0.2-0.8); NEUTROPHILS # (AUTO) 2.5 (2.1-6.9); PLATELET COUNT 214 x10e3/uL (140-360); RED BLOOD COUNT 4.93 x10e6/uL (4.3-5.7)
[2019-02-14 05:58] LABS: INR 0.88; PROTHROMBIN TIME 12.4 seconds (11.9-14.5)
--- NOTE | 2019-02-14 05:58 | Diagnostic Imaging Report ---
History:Left arm numbness Comparison studies:None Technique: Axial images were obtained from the skull base to the vertex. Coronal and sagittal images reconstructed from the axial data. Intravenous contrast: None Dose modulation, iterative reconstruction, and/or weight based adjustment of the mA/kV was utilized to reduce the radiation dose to as low as reasonably achievable. Findings: Scalp/skull: No abnormalities. Extra-axial spaces: No masses. No fluid collections. Brain sulci: Mildly prominent. Ventricles: Mild compensatory dilatation. No hydrocephalus. Parenchyma: Few hypodensities in the supratentorial white matter are small vessel ischemic changes. No masses, hemorrhage, acute or chronic cortical vascular insults. Sellar/suprasellar region: No abnormalities. Craniocervical junction: Patent foramen magnum. No Chiari one malformation. Incidental findings: Atherosclerotic calcifications in the carotid siphons . Impression: No acute abnormalities. Chronic findings: 1. Mild generalized volume loss. 2. Mild supratentorial white matter small vessel ischemic changes. Signed by: DR Reji Hall M.D. on 02/14/2019 5:54 AM
[2019-02-14 05:59] LABS: PARTIAL THROMBOPLASTIN TIME 36.1 seconds (23.8-35.5)
[2019-02-14 06:13] LABS: ALANINE AMINOTRANSFERASE 36 IU/L (0-55); ALBUMIN 3.4 g/dL (3.5-5.0); ALKALINE PHOSPHATASE 77 IU/L (40-150); BLOOD UREA NITROGEN 13 mg/dL (7-26); BUN/CREATININE RATIO 15 (6-25); CALCIUM 9.2 mg/dL (8.4-10.2); CARBON DIOXIDE 24 mmol/L (22-29); CHLORIDE 101 mmol/L (98-107); CREATINE KINASE 56 IU/L (30-200); CREATININE, SERUM 0.85 mg/dL (0.72-1.25); EST GLOMERULAR FILTRATION RATE > 60 ML/MIN (60-); GLUCOSE 94 mg/dL (74-118); SODIUM 135 mmol/L (136-145)
[2019-02-14] MEDS ORDERED: ONDANSETRON HCL INJ 2MG/ML 2ML 2 MG/ML VIAL IV PRN (07:45)
[2019-02-14] MEDS ORDERED: FOLIC ACID 5 MG/ML VIAL IV ONE (07:45)
[2019-02-14] MEDS ORDERED: METOPROLOL TARTRATE 25 MG TAB PO SCH (07:45)
--- OUTSIDE RECORDS SUMMARY | 2019-02-14 08:01 | XMS REPORT | Continuity of Care Document ---
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 Phone [employer] Unavailable Unavailable Problems Problem Status Onset Date Classification Date Reported Comments Source DX: WEIGHT LOSS / ABD PAIN Active 02/19/2017 [facility] DX: BLURRED VISION, DIZZINESS Active 06/20/2016 [facility] M99.83 - OTHER BIOMECHANICAL LESIONS OF Active 10/31/2015 [facility] [place] CHEST PAIN Active 10/11/2015 [facility] Benign prostatic hypertroph with outflow obstruction (disorder) Active Problem 01/24/2019 [facility] Atherosclerosis of coronary artery (disorder) Resolved Problem 01/24/2019 [facility], [facility]D [place],[facility] History of - rheumatic fever (context-dependent category) Resolved Problem 01/24/2019 [facility], [facility] [place],[facility] Nocturia (finding) Active Problem 01/24/2019 [facility] Raised prostate specific antigen (finding) Active Problem 01/24/2019 [facility] Simple obesity (disorder) Active Problem 01/24/2019 [facility] Urge incontinence of urine (finding) Active Problem 01/24/2019 [facility] Urgent desire to urinate (finding) Active Problem 01/24/2019 [facility] LUMBAR STENOSIS Active [facility] PAIN Active [facility] LBP Active [facility] Medications Medication Details Route Status Patient Instructions Ordering Provider Order Date Source Levofloxacin 500 MG Oral Tablet [Levaquin] 500 mg=1 tab, PO, Q24H, Start 3 days prior to procedure, X 5 day, # 5 tab, 0 Refill(s), Pharmacy: [facility] No Longer Active 07/06/2018 [facility] tamsulosin 0.4 mg oral capsule 0.4 mg=1 cap, PO, Daily, # 30 cap, 11 Refill(s), Pharmacy: [facility] [place] Active 07/01/2018 [facility] tamsulosin 0.4 mg oral capsule 0.4 mg=1 cap, PO, Daily, # 30 cap, 6 Refill(s) No Longer Active 06/29/2018 [facility] Fish Oil PO, 0 Refill(s) Active 06/29/2018 [facility] Afrin Pump Mist NASAL, BID, 0 Refill(s) Active 06/29/2018 [facility] cetirizine hydrochloride 10 MG Oral Capsule [Zyrtec] 10 mg=1 cap, PO, Daily, 0 Refill(s) Active 06/29/2018 [facility] Saline Flush 0.9% 10 ml, Route: IVP, Drug Form: INJ, Dosing Weight 100, kg, Q12H, Start date: 10/11/15 21:00:00 CDT, Duration: 30 day, Stop date: 11/10/15 9:00:00 CDTNotes: (Same as: BD Posiflush) Inactive 10/12/2015 [facility] Mucinex DM 10 mL, Route: PO, Drug Form: SYRP, Dosing Weight 100, kg, ONCE, Start date: 10/11/15 18:16:00 CDT, Stop date: 10/11/15 18:16:00 CDTNotes: (dextromethorphan-guaifenesin 10-100mg/5ml 10 ml oral SOLN ud) (Same as: Robitussin DM) Inactive 10/11/2015 [facility] Aspirin 81 MG Enteric Coated Tablet 81 mg, 1 tab, Route: PO, Drug form: ECTAB, Daily, Dosing Weight 100, kg, Start date: 10/11/15 14:00:00 CDT, Duration: 30 day, Stop date: 11/10/15 9:00:00 CDTNotes: Do not crush or chew. (Same As: Ecotrin) Inactive 10/11/2015 [facility] atropine 0.5 mg, 5 mL, Route: IVP, Drug form: INJ, PRN, PRN Bradycardia, Start date: 10/11/15 13:19:00 CDT, Duration: 30 day, Stop date: 11/10/15 13:18:00 CDT Inactive 10/11/2015 [facility] Vitamin B12 1,000 microgram, 0 Refill(s) Active 10/11/2015 [facility] saxagliptin 5 MG Oral Tablet [Onglyza] 5 mg=1 tab, PO, Daily, # 30 tab, 3 Refill(s) Active 10/11/2015 [facility] Aspirin 81 mg, PO, Daily, 0 Refill(s) Active 10/11/2015 [facility] magnesium oxide 250 mg oral tablet 500 mg=2 tab, PO, Daily, # 20 tab, 0 Refill(s) Active 10/11/2015 [facility] Vitamin D3 2,000 IntlUnit, PO, Daily, 0 Refill(s) Active 10/11/2015 [facility] pitavastatin 2 MG Oral Tablet [Livalo] 2 mg=1 tab, PO, Daily, # 30 tab, 3 Refill(s) Active 10/11/2015 [facility] Cymbalta 30 mg, PO, TID, 0 Refill(s) Active 10/11/2015 [facility] Trazodone 25 mg, 0.5 tab, Route: PO, Drug form: TAB, Bedtime, Dosing Weight 100, kg, PRN Sleep, Start date: 10/11/15 13:02:00 CDT, Duration: 30 day, Stop date: 11/10/15 13:01:00 CDT, ..Notes: (Same As: Desyrel) Inactive 10/11/2015 [facility] Tylenol 650 mg, 2 tab, Route: PO, Drug form: TAB, Q6H, Dosing Weight 100, kg, PRN Pain Score 1-5, Start date: 10/11/15 13:02:00 CDT, Duration: 30 day, Stop date: 11/10/15 13:01:00 CDTNotes: Do not exceed 4 gm/day. (Same as: Tylenol) Inactive 10/11/2015 [facility] Saline Flush 0.9% 10 ml, Route: IVP, Drug Form: INJ, Dosing Weight 100, kg, PRN, PRN Line Flush, Start date: 10/11/15 13:01:00 CDT, Duration: 30 day, Stop date: 11/10/15 13:00:00 CDTNotes: (Same as: BD Posiflush) Inactive 10/11/2015 [facility] Nitroglycerin 0.4 mg, 1 tab, Route: SL, Drug form: TAB, Q5Min, Dosing Weight 100, kg, PRN Chest Pain, Start date: 10/11/15 13:01:00 CDT, Duration: 3 doses or times, Stop date: 11/10/15 13:00:00 CDTNotes: (Same as:Nitroquick, Nitrostat) "Do Not Crush" Sublingual tablet Inactive 10/11/2015 [facility] Allergies, Adverse Reactions, Alerts Substance Category [...] should be multiplied by the estimated BMI. [facility] CHEM PANEL POC Creatinine 0.9 0.5 - 1.4 02/25/2017 [facility] CARDIAC ENZYMES CK MB 1.4 0.5 - 3.6 10/12/2015 [facility] CARDIAC ENZYMES CK MB Index 1.4 0.0 - 2.5 10/12/2015 [facility] CARDIAC ENZYMES Total CK 101 12 - 191 10/12/2015 [facility] CARDIAC ENZYMES Troponin-I <0.02 0.00 - 0.40 10/12/2015 [facility] CARDIAC ENZYMES CK MB Index 1.7 0.0 - 2.5 10/11/2015 [facility] CARDIAC ENZYMES Troponin-I <0.02 0.00 - 0.40 10/11/2015 [facility] CARDIAC ENZYMES Total CK 101 12 - 191 10/11/2015 [facility] CARDIAC ENZYMES CK MB 1.7 0.5 - 3.6 10/11/2015 [facility] CHEM PANEL eGFR 79 10/11/2015 Result [...] Sodium Lvl 139 135 - 145 10/11/2015 [facility] CHEM PANEL Creatinine Lvl 0.95 0.50 - 1.40 10/11/2015 [facility] PANEL Potassium Lvl 4.9 3.5 - 5.1 10/11/2015 [facility] CHEM PANEL CO2 28 24 - 32 10/11/2015 [facility] CHEM PANEL Chloride Lvl 104 95 - 109 10/11/2015 [facility] CHEM PANEL Calcium Lvl 8.3 8.5 - 10.5 10/11/2015 [facility] CHEM PANEL AGAP 11.9 10.0 - 20.0 10/11/2015 [facility] CHEM PANEL Bili Indirect 0.2 0.0 - 1.0 10/11/2015 [facility] CHEM PANEL Globulin 3.3 2.0 - 4.0 10/11/2015 [facility] CHEM PANEL A/G Ratio 1.2 0.7 - 1.6 10/11/2015 [facility] CHEM PANEL Bili Direct 0.2 0.0 - 0.3 10/11/2015 [facility] CHEM PANEL Bili Total 0.4 0.2 - 1.3 10/11/2015 [facility] CHEM PANEL Total Protein 7.1 6.4 - 8.4 10/11/2015 [facility] CHEM PANEL Albumin Lvl 3.8 3.5 - 5.0 10/11/2015 [facility] CHEM PANEL AST 16 0 - 37 10/11/2015 [facility] CHEM PANEL Alk Phos 76 39 - 136 10/11/2015 [facility] CHEM PANEL ALT 25 0 - 65 10/11/2015 [facility] HEMATOLOGY INR 1.01 0.85 - 1.17 10/11/2015 [facility] HEMATOLOGY PT 13.6 12.0 - 14.7 10/11/2015 [facility] HEMATOLOGY PTT 39.8 22.9 - 35.8 10/11/2015 [facility] HEMATOLOGY MCHC 32.2 32.0 - 36.0 10/11/2015 [facility] HEMATOLOGY MCH 28.9 27.0 - 31.0 10/11/2015 [facility] HEMATOLOGY Platelet 190 133 - 450 10/11/2015 [facility] HEMATOLOGY RDW 15.1 11.5 - 14.5 10/11/2015 [facility] HEMATOLOGY MCV 89.7 80.0 - 94.0 10/11/2015 [facility] HEMATOLOGY MPV 7.2 7.4 - 10.4 10/11/2015 [facility] HEMATOLOGY RBC 5.01 4.70 - 6.10 10/11/2015 [facility] HEMATOLOGY WBC 7.9 3.7 - 10.4 10/11/2015 [facility] HEMATOLOGY Hgb 14.5 14.0 - 18.0 10/11/2015 [facility] HEMATOLOGY Hct 44.9 42.0 - 54.0 10/11/2015 [facility] HEMATOLOGY Monocytes # 0.8 0.0 - 0.8 10/11/2015 [facility] HEMATOLOGY Eosinophils # 0.9 0.0 - 0.5 10/11/2015 [facility] HEMATOLOGY Basophils # 0.1 0.0 - 0.2 10/11/2015 [facility] HEMATOLOGY Segs 60.6 45.0 - 75.0 10/11/2015 [facility] HEMATOLOGY Lymphocytes 16.8 20.0 - 40.0 10/11/2015 [facility] HEMATOLOGY Monocytes 10.4 2.0 - 12.0 10/11/2015 [facility] HEMATOLOGY Eosinophils 11.4 0.0 - 4.0 10/11/2015 [facility] HEMATOLOGY Basophils 0.8 0.0 - 1.0 10/11/2015 [facility] HEMATOLOGY Segs-Bands # 4.8 1.5 - 8.1 10/11/2015 [facility] HEMATOLOGY Lymphocytes # 1.3 1.0 - 5.5 10/11/2015 [facility] LIPIDS CHD Risk 5.22 4.00 - 7.30 10/11/2015 [facility] LIPIDS VLDL 68 10/11/2015 [facility] LIPIDS LDL (Calculated) 88 <=99 mg/dL 10/11/2015 [facility] LIPIDS Trig 338 <=149 mg/dL 10/11/2015 [facility] LIPIDS Chol 193 <=199 mg/dL 10/11/2015 [facility] LIPIDS HDL 37 >=61 mg/dL 10/11/2015 [facility] Pathology Reports No Data Provided for [...] or metastatic disease to the abdomen/pelvis. SL: [id number] 02/25/2017 [facility] Brain wo contrast CT CT BRAIN [...] acute intracranial abnormalities are visualized. SL:16 06/25/2016 [facility] Spine lumbar wo contrast MRI EXAM: [...] contacting each S1 nerve root. There is [id number] neural foramen stenosis bilaterally. IMPRESSION: 1. L4-L5 [...] Please see additional comments above 2015 MEND[facility] Perez Consultation Notes No Data Provided for This [...] 06/29/2018 [facility] Heart Rate 84 10/11/2015 [facility] Respitory Rate 16 10/11/2015 [facility] Systolic (mm Hg) 124 10/11/2015 [facility] Diastolic (mm Hg) 71 10/11/2015 [facility] Temperature Oral (F) 97.4 F 10/11/2015 [facility] Diastolic (mm Hg) 76 10/11/2015 [facility] Systolic (mm Hg) 123 10/11/2015 [facility] Temperature Oral (F) 97.4 F 10/11/2015 [facility] Respitory Rate 18 10/11/2015 [facility] Heart Rate 76 10/11/2015 [facility] Height 182.88 cm 10/11/2015 [facility] Weight 100 10/11/2015 [facility] BMI Calculated 29.9 10/11/2015 [facility] Encounters Location Location Details Encounter Type Encounter Number Reason For Visit Attending Provider ADM Date DC Date Status Source [facility] OBS Observation Patient [id number] Dario Ramirez 10/11/2015 10/12/2015 [facility] [place] [facility] [id number] Almas Manning Jr 2015 11/14/2015 [facility] [place] [facility] OP Therapy Patients [id number] Almas Manning Jr 12/26/2015 01/25/2016 [facility] OP Therapy Patients [id number] Almas Manning Jr 01/30/2016 02/29/2016 [facility] OP Therapy Patients [id number] Almas Manning Jr 03/05/2016 04/04/2016 [facility] OP Therapy Patients [id number] Almas Manning Jr 04/09/2016 05/09/2016 [facility] Outpatient [id number] Aslam Arriaga 06/25/2016 06/26/2016 [facility] Outpatient [id number] Aslam Arriaga 02/25/2017 02/26/2017 [facility] [id number] Michael Howema 03/22/2018 03/22/2018 [facility] Outpatient [id number] TERRIE MARQUEZ 06/29/2018 Active [facility] Urology [facility] Outpatient [id number] Terrie Marquez 06/29/2018 06/30/2018 [facility] Outpatient [id number] NURSE VISIT 07/01/2018 Active [facility] Ambulatory Pre-Reg [id number] Aslam Arriaga 07/01/2018 07/02/2018 [facility] Outpatient [id number] TERRIE MARQUEZ 07/06/2018 Active [facility] Urology [facility] Outpatient [id number] Terrie Marquez 07/06/2018 07/07/2018 [facility] Outpatient [id number] NURSE VISIT 08/13/2018 Active [facility] Outpatient [id number] TERRIE MARQUEZ 08/13/2018 Active [facility] Outpatient [id number] TERRIE MARQUEZ 08/30/2018 Active [facility] Procedures Procedure Code Date Perfomer Comments Source Measurement of post-voiding residual urine and/or bladder capacity by ultrasound, non-imaging [id number] 07/01/2018 [facility] Complex uroflowmetry (eg, calibrated electronic equipment) [id number] 07/01/2018 [facility] Hernia repair [id number] [facility] Stent placement [id number] [facility] Assessment and Plan Assessment and Plan Date [...] and other outpt evaluation in office. 10/12/2015 [facility] Plan of Care No Data Provided [...] No; Reg Smoking Cessation Counseling Yes 10/11/2015 [facility] Social History TypeResponse Alcohol Past Smoking Status Never smoker; Exposure to Tobacco Smoke None; Cigarette Smoking Last 365 Days No; Reg Smoking Cessation Counseling Yes 10/11/[address] [facility] Social History TypeResponse Alcohol Past Smoking Status Never smoker; Exposure to Tobacco Smoke None; Cigarette Smoking Last 365 Days No; Reg Smoking Cessation Counseling Yes entered on: 07/06/18 10/11/2015 [facility] Family History No Data Provided for This Section Advance Directives No Data Provided for This Section Functional Status No Data Provided for This Section
[2019-02-14 08:12] LABS: BILIRUBIN,URINE NEGATIVE (NEGATIVE); CLARITY,URINE CLEAR (CLEAR); COLOR,URINE YELLOW (YELLOW); KETONES,URINE NEGATIVE (NEGATIVE); LEUKOCYTE ESTERASE ,URINE NEGATIVE (NEGATIVE); NITRITE,URINE NEGATIVE (NEGATIVE); PROTEIN,URINE DIPSTICK NEGATIVE (NEGATIVE); URINE UROBILINOGEN 0.2 mg/dL (0.2 - 1)
[2019-02-14 08:23] LABS: BACTERIA,URINE MODERATE /HPF; EPITHELIAL CELLS,URINE FEW /LPF; RBC,URINE 0-5 /HPF (0-5)
[2019-02-14] MEDS: FAMOTIDINE 20 MG/2 ML VIAL IV SCH ×2 (08:25→19:45)
[2019-02-14] MEDS: FOLIC ACID MDV 1 MG in SODIUM CHLORIDE 0.9% 50ML 50 ML IV SCH (08:26)
[2019-02-14] MEDS ORDERED: METOPROLOL TARTRATE 50 MG TAB PO ONE (08:30)
[2019-02-14] MEDS ORDERED: ASPIRIN 81 MG CHEW TAB PO ONE (08:30)
[2019-02-14] MEDS ORDERED: CLOPIDOGREL BISULFATE 75 MG TAB PO ONE (08:30)
--- NOTE | 2019-02-14 08:59 | Diagnostic Imaging Report ---
EXAMINATION: CHEST SINGLE (PORTABLE) INDICATION: Chest pain COMPARISON: None FINDINGS: LINES/TUBES:EKG leads overlie the chest. LUNGS:The lungs are well-inflated. No focal consolidation or pulmonary edema. PLEURA:No pleural effusion or pneumothorax. MEDIASTINUM:The cardiomediastinal silhouette appears normal in size and shape. BONES/SOFT TISSUES:No acute osseous injury. ABDOMEN:No free air under the diaphragm. IMPRESSION: No focal pneumonia or pulmonary edema. Signed by: Diandra Sánchez MD on 02/14/2019 8:56 AM
[2019-02-14 09:30] LABS: MAGNESIUM 2.2 MG/DL (1.3-2.1)
[2019-02-14 09:51] LABS: THYROID STIMULATING HORMONE 2.163 uIU/mL (0.350-4.940)
--- NOTE | 2019-02-14 10:06 | Diagnostic Imaging Report ---
History: Severe headache, left-sided weakness Comparison studies: Head CT 02/14/2019 Technique: Sagittal and axial T2 FS, axial DWI, axial T2*GRE, axial T1 FLAIR and axial coronal T2 FLAIR. Intravenous contrast: None Findings: Scalp: Normal in signal. No masses. Bone marrow: Normal in signal intensity. Brain sulci: Appropriate for age. Ventricles: Normal in size. No hydrocephalus. Extra axial spaces: No mass, no fluid collection. Parenchyma: No mass, hemorrhage or acute ischemia. A few scattered T2 FLAIR hyperintense foci in the deep and subcortical supratentorial white matter are nonspecific but are most compatible with chronic microvascular ischemic changes and patient's age. Small chronic lacunar insult in the inferior left cerebellum (series 6, image 5). Possible additional small chronic lacunar insult in the right posterior cerebellum (series 6, image 6). Suprasellar region: No abnormalities. Craniocervical junction: Patent foramen magnum. No Chiari malformation. Vessels: Normal flow-voids in the arteries and sinuses. Paranasal sinuses: Nonspecific T2 hyperintense mucosal thickening in the left maxillary sinus. Incidental findings: Bilateral lens replacements for previous cataract surgery. IMPRESSION: 1. No acute intracranial abnormalities. 2. Mild chronic microvascular ischemic changes. 3. Small cerebellar lacunar insult(s). Signed by: Dr. Almas Melissa M.D. on 02/14/2019 10:03 AM
--- NOTE | 2019-02-14 10:47 | History and Physical ---
CHIEF COMPLAINT: Left-sided headaches. HISTORY OF PRESENT ILLNESS: This is a 78-year-old white man, who presents to [facility] with complaints of intense left-sided headache, which woke up early this morning. The patient denied any chest pain, tightness, but did complain of shortness of breath. Also, he states his left forearm and hand felt numb, but this has since resolved. In the emergency room, the initial cardiac enzyme, namely troponin I was normal at 0.045. The patient also underwent a CT of the head in the emergency room that revealed mild generalized volume loss, otherwise unremarkable. The patient's lab work was normal also. The patient states he has had purulent rhinorrhea lately. He also states he suffers from severe sinus allergies. He also suffers from a chronic cough, but his cough is not worse than usual. At 12-lead EKG done in the emergency room did not reveal any acute ischemic changes, but he does have a history of coronary artery disease. In fact, the patient states that in 2013, he had 3 coronary stents placed and in 2001, he had 2 coronary stents placed. Once again, the patient is chest pain free. The patient will be admitted for further evaluation and treatment. REVIEW OF SYSTEMS: GENERAL: Weight is stable. No fever or chills. HEENT: Complains of sinus type headache, particularly on the left frontoparietal area. No visual changes. The patient states that he has had purulent rhinorrhea for a few days. CARDIOVASCULAR: No chest pain, slight shortness of breath. He does have a chronic cough, but not worse than usual. GI: No nausea, vomiting, or diarrhea. : No UTIs. NEUROMUSCULAR: The patient did complain of left forearm, left hand numbness associated with a left-sided headache, but it has since resolved. He denies any weakness in any of his extremities. ALLERGIES: 1. KEFLEX. 2. AZELASTINE. HOME MEDICATIONS: 1. Aspirin 81 mg daily. 2. Atorvastatin 10 mg at bedtime. 3. Calcium with vitamin D once daily. 4. Vitamin D 1000 units daily. 5. Cymbalta 60 mg daily. 6. Glucosamine chondroitin once daily. 7. Magnesium oxide 250 mg daily. 8. Singulair 10 mg daily. 9. Multivitamin once a day. 10. [place]-3 fish oil 1000 mg daily. 11. Pitavastatin 2 mg at bedtime. 12. Pregabalin 100 mg daily. 13. Saxagliptin 5 mg daily. 14. Venlafaxine 75 mg daily. 15. Flonase 2 sprays to each nostril daily. PAST SURGICAL HISTORY: 1. Two coronary stents placed in 2011. 2. Three coronary stents placed in 2013. 3. Left inguinal hernia repair. PAST MEDICAL HISTORY: 1. Rheumatic fever as a child. 2. Allergic rhinitis. 3. Coronary artery disease (the patient has total [address]). 4. Hyperlipidemia. 5. Depression. 6. Peripheral neuropathy. 7. Type 2 diabetes. 8. Chronic bronchitis. FAMILY HISTORY: No family history of coronary artery disease. SOCIAL HISTORY: This man is and lives with his . He retired in 2003. The patient was a heavy tobacco smoker, but he quit in 1993. The patient drinks alcohol socially. PHYSICAL EXAMINATION: GENERAL: He is awake, alert, fluent, in no distress. He is very pleasant and cooperative on exam. VITAL SIGNS: Blood pressure when he arrived to the emergency room was elevated at 137/77, currently 142/84, pulse 72, respiratory rate 16, oxygen saturation 98%, temp 97.6, height 6 feet 1 inch, weight 220 pounds, BMI 29. INTEGUMENT: Skin is warm and dry. No pallor, jaundice, or diaphoresis. HEENT: Anicteric sclerae. Moist mucous membranes. The patient does have tenderness on palpating the bilateral frontal and maxillary sinuses. NECK: Supple. No lymphadenopathy appreciated. CARDIOVASCULAR: Distant heart sounds. Regular rate and rhythm. LUNGS: No rales, no rhonchi or wheezes. ABDOMEN: Benign. EXTREMITIES: No edema or deformity. NEUROLOGIC: Intact. No gross focal deficits appreciated. DIAGNOSES: 1. Acute maxillary sinusitis. 2. Transient left upper extremity numbness, possible cardiac equivalent. 3. Hypertensive heart disease. 4. Type 2 diabetes mellitus. 5. Allergic rhinitis. 6. Coronary artery disease (history of [address]). PLAN: 1. Rule out myocardial infarction. 2. Consult Cardiology. 3. Order MRI of the brain. 4. Start intravenous levofloxacin for acute sinusitis. 5. Blood pressure control. I spent 40 minutes in the care of the patient. MD CACHORRO Quick/LUZMA /[id number] MTDDon
[2019-02-14] MEDS: LEVOFLOXACIN 750MG/D5W 150ML 150 ML IV SCH (12:38)
--- NOTE | 2019-02-14 15:30 | NUR ---
RECD PT FROM ER VIA STRETCHER,AAOX3,C/O HEADACHE,TELE IN PLACE #17,IV TO RT AC 20 GAUGE.CALL SÁNCHEZ IN REACH,HOB ELEVATED.
[2019-02-14 15:52] VITALS: BP 177/83
[2019-02-14] MEDS ORDERED: XANAX0.5 MG PO (15:56)
[2019-02-14] MEDS ORDERED: ULTRAM50 MG PO (15:56)
[2019-02-14] MEDS ORDERED: ACETAMINOPHEN325 M1 PO (16:07)
--- NOTE | 2019-02-14 16:13 | Consultation ---
DATE OF CONSULTATION: 02/14/2019 Cardiology Consultation REQUESTING PHYSICIAN: Dr. Correa. REASON FOR CONSULTATION: Coronary artery disease. HISTORY OF PRESENT ILLNESS: This is a 78-year-old gentleman with history of coronary artery disease, status post five stents, hypertension, hyperlipidemia, and prior smoking, who presented today to the hospital with severe headache and left hand numbness. The patient reports that he developed severe headache around 4:00 a.m., associated with left hand numbness. He took Tylenol without relief, given the symptoms, he presented to the ER for further evaluation. Upon arrival to the ER, he stated his left hand numbness had resolved, but he continued to have severe headache. He denied any chest pain, shortness breath, palpitations, edema, orthopnea or PND. REVIEW OF SYSTEMS: A 12-point review of systems was performed and is negative except as per HPI. PAST MEDICAL HISTORY: 1. Coronary artery disease, status post stents x5. 2. Hypertension and hyperlipidemia. 3. COPD. PAST SURGICAL HISTORY: 1. Hernia surgery. 2. History of L4-L5 spinal stenosis with decompressive surgery. 3. Right arm surgery secondary to fracture. ALLERGIES: PLEASE SEE EMR. MEDICATIONS: Please see medication list. SOCIAL HISTORY: He quit smoking 25 years ago. He drinks alcohol rarely. No illicit drugs. FAMILY HISTORY: He denies family history of heart disease. PHYSICAL EXAMINATION: VITAL SIGNS: Temperature 97.6 degrees, pulse 72, respiratory rate 18, blood pressure 166/84, and oxygen saturation 98%. GENERAL: Well-developed, well-nourished man, in no acute distress. HEENT: Normocephalic, atraumatic. Pupils are equal. No scleral icterus. NECK: Supple. No thyromegaly or cervical lymphadenopathy. No carotid bruits. LUNGS: Clear to auscultation bilaterally. No wheezes or crackles. CARDIOVASCULAR: Normal rate, regular rhythm. No murmur. Normal S1, S2. ABDOMEN: Soft, nontender. EXTREMITIES: No edema. NEUROLOGIC: Nonfocal exam. CARDIAC MEDICATIONS: Metoprolol tartrate 25 mg p.o. q.12 hours, Plavix 75 mg p.o. daily, aspirin 81 mg p.o. daily. LABORATORY DATA: WBC 5.75, hemoglobin 14.4, hematocrit 42.5, platelets 214. Sodium 135, potassium 4, chloride 101, CO2 of 24, BUN 13, creatinine 0.85. Troponin 0.045. BNP 22. Chest x-ray, no focal pneumonia or pulmonary edema. MRI brain, no acute intracranial abnormalities, mild chronic microvascular ischemic changes, small cerebral or lacunar insults. CT brain, mild generalized volume loss, mild supratentorial white matter small-vessel ischemic changes. EKG, normal sinus rhythm, normal ECG. IMPRESSION: 1. Headache. 2. Left arm numbness. 3. Coronary artery disease status post prior stents. 4. Hypertension. 5. Hyperlipidemia. 6. Prior smoker. RECOMMENDATIONS: Trend cardiac enzymes to rule out myocardial infarction. The patient is asymptomatic at this time. Continue dual anti-platelet therapy and statin. The patient's blood pressure is not well controlled. Titrate metoprolol, add lisinopril. The patient denies any history of heart failure. 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 No further cardiac evaluation is indicated at this time. Thank you for this consult. We will continue to follow. Radha Brady MD ABS/MODL /[id number]
[2019-02-14 16:15] LABS: CREATINE KINASE MB 1.6 ng/mL (0-5.0)
[2019-02-14] MEDS ORDERED: LISINOPRIL 10 MG TAB PO ONE (16:45)
[2019-02-14] MEDS ORDERED: TRAMADOL HCL 50 MG TAB PO PRN (17:30)
[2019-02-14] MEDS ORDERED: ACETAMINOPHEN 325 MG TAB PO PRN (17:30)
[2019-02-14] MEDS ORDERED: ALPRAZOLAM 0.5 MG TAB PO PRN (17:30)
[2019-02-14 20:00] VITALS: BP 148/98
--- NOTE | 2019-02-14 20:00 | NUR ---
RECEIVED PT IN BED AOX3 .DENIES PAIN TELE 17 SHOWS SR RT AC 20G S/L RESPIRATIONS ARE EVEN AND UNLABORED .CALL LIGHT WITH IN REACH .DR BYRNE IS TALKING TO THE PT NOW .
--- NOTE | 2019-02-14 20:20 | NUR ---
DR BYRNE HAS SEEN THE PT AND TOLD NO TIA OR STROKE .PT IS TRANSFERRED TO RM 186 AND REPORT GIVEN TO THE RECEIVING NURSE.CALL LIGHT WITH IN REACH .CONTINUE TO MONITOR
[2019-02-14] MEDS: METOPROLOL TARTRATE 25 MG TAB PO SCH (20:30)
[2019-02-14 20:32] VITALS: BP 162/81
[2019-02-14 21:00] VITALS: BP 162/81
--- NOTE | 2019-02-14 21:00 | NUR ---
PT TRANSFERRED TO ROOM FROM MS3, ORIENTED TO ROOM, PT HAS TELE ON, DR BYRNE HERE TO SEE PT, VS STABLE, NO DISTRESS NOTED, CALL LIGHT IN REACH, C/O SLIGHT HEADACHE, IV INTACT, PT AMBULATES TO BATHROOM, TOLD TO CALL FOR NEEDS
[2019-02-14 23:38] VITALS: BP 110/64
--- NOTE | 2019-02-15 01:36 | Consultation ---
DATE OF CONSULTATION: 02/14/2019 Neurology Consult Note HISTORY OF PRESENT ILLNESS: Mr. Allison is a 78-year-old right-hand dominant man with past medical history significant for hypertension, hyperlipidemia, diabetes mellitus complicated by peripheral neuropathy, and coronary artery disease, admitted to [facility] on February 14, 2019, with headache, chest pain, and left arm weakness and numbness. On the morning of admission, Mr. Allison was awakened at approximately 0400 hours by a sharp pain across his forehead. In addition to the headache, the patient noted chest pain as well as numbness and possible weakness of the left arm. Mr. Allison does not report a visual field cut or other disturbance, dysarthria, aphasia, facial droop, left leg weakness, impairment of balance or gait, dizziness, or confusion associated with symptoms in his left arm. Mr. Allison does report a history of chronic neck pain. He does not report a limited range of motion of the cervical spine or crepitus of the cervical spine. Concerned, he was experiencing either a heart attack or stroke, the patient proceeded to the emergency center at [facility] for further evaluation of his symptoms. Upon arrival in the emergency center, the patient was afebrile with a blood pressure of 177/77 mmHg and a pulse of 72 beats per minute. Documentation of the patient's neurological examination is not available for review at present. A CT of the brain without contrast was performed in the emergency center. This study did not reveal evidence of recent large territorial ischemia or hemorrhage. While in the emergency center, multiple of the patient's symptoms began to resolve. Mr. Allison reports the numbness and possible weakness in his left arm began to gradually resolve approximately 2 hours after onset. Medication administered in the emergency center led to resolution of his headache and chest pain. The only symptoms endorsed by the patient at present are nasal congestion and chest congestion. REVIEW OF SYSTEMS: Chest pain, anxiety, nasal congestion, chest congestion, possible weakness of the left arm, numbness of the left arm, headache. Otherwise, a 12-point review of systems is negative. PAST MEDICAL HISTORY: Hypertension, hyperlipidemia, diabetes mellitus complicated by peripheral neuropathy, coronary artery disease, chronic bronchitis, depression, rheumatic fever as a child, seasonal allergies. PAST SURGICAL HISTORY: Cardiac catheterization with two stents placed in 2011, cardiac catheterization with three stents placed in 2014, left inguinal hernia repair, lumbar spine surgery, right arm surgery following trauma, bilateral cataract removal. PAST HOSPITALIZATIONS: Surgeries/procedures, numerous other hospitalizations. FAMILY MEDICAL HISTORY: The patient reports his father may have from heart disease. His mother in her mid 90s from natural causes. SOCIAL HISTORY: Mr. Allison is . He is retired. The patient does report a prior history of tobacco use, but quit smoking cigarettes approximately 15 years ago. Mr. Allison reports social alcohol use. He does not report current or prior recreational drug use. HOME MEDICATIONS: Aspirin 81 mg by mouth daily, pitavastatin 2 mg by mouth daily, alprazolam 0.5 mg by mouth as needed for anxiety, acetaminophen 650 mg by mouth every 6 hours as needed for pain, multivitamin one tablet by mouth daily, Lyrica 100 mg by mouth daily, tramadol 50 mg by mouth every 6 hours as needed for pain, venlafaxine 75 mg by mouth daily, and Flonase. HOSPITAL MEDICATIONS: Acetaminophen, alprazolam, aspirin, Plavix, Pepcid, Flonase, folic acid, levofloxacin, lisinopril, metoprolol, multivitamin, Zofran, Lyrica, tramadol, and venlafaxine. ALLERGIES: KEFLEX, AZELASTINE. NO KNOWN FOOD ALLERGIES. NO KNOWN ALLERGIES TO LATEX. NO KNOWN ALLERGIES TO IODINE OR OTHER CONTRAST MATERIALS. PHYSICAL EXAMINATION: VITAL SIGNS: Height 73 inches, weight 225 pounds, BMI 29.7 kg/m2, blood pressure 177/83 mmHg, pulse 69 beats per minute, respiratory rate 18 breaths per minute, and oxygen saturation 96% on room air. GENERAL: The patient is awake and alert, does not appear distressed. Overweight. HEENT: Normocephalic and atraumatic. Pupils are surgical. Moist mucous membranes. NECK: Supple. No appreciable thyromegaly. No appreciable carotid bruits. CARDIOVASCULAR: S1, S2, regular rate and rhythm. No murmurs, rubs, or gallops. RESPIRATORY: Clear to auscultation bilaterally. No wheezes, rhonchi, or rales. EXTREMITIES: The skin is warm and dry. No clubbing, cyanosis, or edema. The posterior tibial and dorsalis pedis pulses are 1+ and symmetric. Absence of hair over the feet and forelegs. SKIN: No rashes or lesions. NEUROLOGIC: Memory/Attention: The patient is awake and alert, oriented to person, place, time, and situation. Cranial Nerves: Cranial nerve I - not tested. Cranial nerves II, III, IV, and - the pupils are surgical. Extraocular movements intact. No nystagmus. Cranial nerve V - sensation to light touch and pinprick is intact in the bilateral V1 through V3 distributions. Strength in the temporalis and masseter muscles are within normal limits. Cranial nerve VII - the face is symmetric as are all facial movements. Strength is within normal limits. Cranial nerve VIII - hearing is intact to finger rub bilaterally. Cranial nerves IX, X - the soft palate elevates equally and symmetrically. Cranial nerve XI - normal strength of the bilateral sternocleidomastoid and trapezius muscles. Cranial nerve XII - the tongue protrudes midline and moves symmetrically from [id number]. Strength: Bulk is normal. Strength is 5/5 in the bilateral deltoids, biceps, triceps, wrist flexors and extensors, finger flexors and extensors, intrinsic hand muscles, hip flexors, knee flexors and extensors, ankle dorsiflexion and plantar flexion, and intrinsic foot muscles. Tone is normal. DTRs: Deep tendon reflexes are 1+ and symmetric at the triceps, biceps, brachioradialis, and patellas. Deep tendon reflexes are absent and symmetric at the Achilles. Plantar responses are flexor bilaterally. Sensation: Sensation is intact to light touch and pinprick in both arms and both legs. Cerebellar: Hryvzs-gmmn-fdyayo and heel-lima movements are intact without dysmetria or other impairment. Gait: Deferred. Speech: Spontaneous speech is normal without appreciable dysarthria or aphasia. Repetition is intact. Involuntary Movements: None. Pronator Drift: None. LABORATORY DATA: A comprehensive metabolic panel is unremarkable. TSH 2.163. B-natriuretic peptide 22.1. Cardiac enzymes are negative x2. The CBC with differential and platelets is unremarkable. PT 12.4, INR 0.88, and PTT 36.1. A urinalysis is significant for 6-10 white blood cells with moderate urine bacteria and few epithelial cells. DIAGNOSTIC STUDIES: Electrocardiogram on 02/14/2019: Normal sinus rhythm at [address] of the brain without contrast on 02/14/2019: On my review, there is no evidence of recent large territorial ischemia, hemorrhage, mass, or mass effect. There is mild diffuse cerebral atrophy with compensatory dilatation of the ventricles, appropriate for the patient's age. Their findings compatible with [id number] chronic small-vessel ischemic disease. Echocardiogram on 02/14/2019: The ejection fraction is 50%. Trace aortic insufficiency. Mild mitral regurgitation. Bilateral carotid artery ultrasound with Doppler on 02/14/2019: There is atherosclerosis without hemodynamically significant stenosis at the bilateral carotid bulbs, bilateral carotid bifurcations, and bilateral proximal internal carotid arteries. Flow is antegrade in the bilateral vertebral arteries. MRI of the brain without contrast on 02/14/2019: On my review, there is no evidence of recent large territorial ischemia, hemorrhage, mass, or mass effect. Chronic lacunar infarcts are seen in the left and right cerebellum. There is mild diffuse cerebral atrophy with compensatory dilatation of the ventricles, appropriate for the patient's age. There is scattered T2/FLAIR hyperintense foci in the deep and subcortical supratentorial white matter compatible with mild chronic small vessel ischemic disease. ASSESSMENT AND PLAN: Mr. Allison is a 78-year-old right-hand dominant man with multiple vascular risk factors, admitted to [facility] on February 14, 2019, with multiple symptoms as detailed in the history of present illness. At present, the patient's neurological examination is nonfocal. His laboratory data and other diagnostic studies have been reviewed and are documented above. Due to the duration of the patient's symptoms, it is improbable Mr. Allison experienced a transient ischemic attack. There is no evidence of stroke on the MRI of the brain without contrast. Therefore, it is more likely the patient's symptoms were due to a compressive neuropathy, cervical radiculopathy, complex migraine, etc. The patient's symptoms have resolved at present. No further evaluation is recommended. The patient may be discharged to home per the primary service. Thank you for this consultation. TIME SPENT: 50 minutes. Shelbi Arthur MD CP/LUZMA /[id number] GEETA
[2019-02-15 03:50] VITALS: BP 132/75
[2019-02-15 05:30] LABS: BASOPHILS # (AUTO) 0.1 (0.0-0.1); BASOPHILS % 0.9 % (0.0-1.0); EOSINOPHILS # (AUTO) 0.4 (0.0-0.4); EOSINOPHILS % 5.8 % (0.0-6.0); HEMOGLOBIN 14.7 g/dL (14.0-18.0); LYMPHOCYTES # (AUTO) 2.1 (1.0-3.2); LYMPHOCYTES % 31.3 % (18.0-39.1); MEAN CORPUSCULAR HEMOGLOBIN 29.8 pg (28-32); MEAN CORPUSCULAR HGB CONC 33.4 g/dL (31-35); MEAN CORPUSCULAR VOLUME 89.1 fL (81-99); MONOCYTES # (AUTO) 0.8 (0.2-0.8); MONOCYTES % 12.4 % (4.4-11.3); NEUTROPHILS # (AUTO) 3.3 (2.1-6.9); NEUTROPHILS % 49.2 % (38.7-80.0); PLATELET COUNT 199 x10e3/uL (140-360); RED BLOOD COUNT 4.94 x10e6/uL (4.3-5.7)
[2019-02-15 05:56] LABS: ALANINE AMINOTRANSFERASE 31 IU/L (0-55); ALBUMIN 3.2 g/dL (3.5-5.0); ALBUMIN/GLOBULIN RATIO 0.9 (0.8-2.0); ALKALINE PHOSPHATASE 74 IU/L (40-150); ANION GAP 15.6 mmol/L (8-16); BLOOD UREA NITROGEN 12 mg/dL (7-26); BUN/CREATININE RATIO 13 (6-25); CALCIUM 9.6 mg/dL (8.4-10.2); CARBON DIOXIDE 25 mmol/L (22-29); CHLORIDE 103 mmol/L (98-107); CHOL/HDL RATIO 4.6 (3.9-4.7); CHOLESTEROL 171 MD/DL (0-199); CREATININE, SERUM 0.96 mg/dL (0.72-1.25); EST GLOMERULAR FILTRATION RATE > 60 ML/MIN (60-); GLUCOSE 99 mg/dL (74-118); HDL CHOLESTEROL 37 MG/DL (40-60); LDL CHOLESTEROL 82 MG/DL (60-130); MAGNESIUM 2.3 MG/DL (1.3-2.1); PHOSPHORUS 4.4 MG/DL (2.3-4.7); POTASSIUM 4.6 mmol/L (3.5-5.1); SODIUM 139 mmol/L (136-145); TRIGLYCERIDES 259 MG/DL (0-149)
--- NOTE | 2019-02-15 06:38 | NUR ---
DR HERNANDEZ HERE TO SEE PT, DISCHARGE TODAY
[2019-02-15 07:24] VITALS: BP 131/72
[2019-02-15] MEDS ORDERED: ATORVASTATIN CA10 MG PO (07:33)
[2019-02-15] MEDS ORDERED: LISINOPRIL10 MG PO (07:33)
[2019-02-15] MEDS ORDERED: LEVAQUIN500 MG PO (07:33)
--- NOTE | 2019-02-15 07:43 | Discharge Summary ---
ADMIT DIAGNOSES: 1. Acute maxillary sinusitis. 2. Transient left upper extremity numbness, possible cardiac equivalent. 3. Hypertensive heart disease. 4. Type 2 diabetes mellitus. 5. Allergic rhinitis. 6. Coronary artery disease (history of five coronary stents in place). DISCHARGE DIAGNOSES: 1. Acute maxillary sinusitis. 2. Left arm numbness, resolved. 3. Left-sided frontoparietal headache secondary to sinusitis. 4. Coronary artery disease. 5. Hypertensive heart disease. 6. Dyslipidemia. HOSPITAL COURSE: This is a 78-year-old white man with known history of coronary artery disease, who was admitted to [facility] with diagnosis of acute maxillary sinusitis that was caused him to have intense left-sided frontoparietal headache. The patient also had vague complaints of left hand numbness. The patient was seen by Cardiology, Dr. Brady, and no evidence of acute myocardial ischemia or infarction is appreciated with serial cardiac enzymes and electrocardiograms. The patient underwent echocardiogram during this hospitalization and preliminary report reveals left ventricular ejection fraction of 50%. The patient also saw neurologist during this hospitalization, Dr. Shelbi Arthur, who did not feel that the patient had any evidence of acute cerebrovascular disease. The patient did undergo an MRI of the brain that did not reveal any acute intracranial abnormalities, but did reveal small chronic cerebellar lacunar insults. The patient also underwent a carotid Doppler ultrasound during this hospitalization that revealed mild atherosclerosis without hemodynamically significant stenosis of the bilateral carotid bulbs. The patient was found to have a triglyceride level of 259 mg/dL and LDL cholesterol of 82 mg/dL. The patient however was not fasting when this lipid profile was drawn. CONDITION ON DISCHARGE: Stable. He was started on intravenous levofloxacin for the acute maxillary sinusitis. DISCHARGE MEDICATIONS: 1. Levofloxacin 750 mg daily for eight more days. 2. Tramadol 50 mg every 6 hours p.r.n. pain. 3. Pregabalin 100 mg daily. 4. Flonase 1 spray each nostril daily. 5. Venlafaxine 75 mg daily. 6. Aspirin 81 mg daily. 7. Livalo 2 mg at bedtime. 8. Lisinopril 10 mg daily. 9. Alprazolam 0.5 mg once daily as needed for anxiety. FOLLOWUP INSTRUCTIONS: The patient was instructed to follow up with his primary care physician namely Dr. Rodriguez within 10-14 days. MD CACHORRO Quick/LUZMA /[id number] cc: DO Shelbi Rubi MD Angela B Shiue, MD MTDD
[2019-02-15] MEDS: FAMOTIDINE 20 MG/2 ML VIAL IV SCH (08:00)
--- NOTE | 2019-02-15 08:00 | NUR ---
REMOVED PATIENTS IV, CATHETER TIP INTACT AND PRESSURE DRESSING APPLIED.
[2019-02-15] MEDS: METOPROLOL TARTRATE 25 MG TAB PO SCH (08:01)
[2019-02-15] MEDS: FOLIC ACID MDV 1 MG in SODIUM CHLORIDE 0.9% 50ML 50 ML IV SCH (08:01)
[2019-02-15] MEDS: LEVOFLOXACIN 750MG/D5W 150ML 150 ML IV SCH (08:01)
[2019-02-15 08:02] VITALS: BP 131/72
--- NOTE | 2019-02-15 08:20 | NUR ---
DISCHARGE INSTRUCTIONS AND PRESCRIPTIONS GIVEN TO PATIENT. PATIENT VERBALIZED UNDERSTANDING OF DISCHARGE INSTRUCTIONS.
[2019-02-15] MEDS ORDERED: ASPIRIN 81 MG CHEW TAB PO SCH (09:00)
[2019-02-15] MEDS ORDERED: PREGABALIN 75 MG CAP PO SCH (09:00)
[2019-02-15] MEDS ORDERED: LISINOPRIL 10 MG TAB PO SCH (09:00)
[2019-02-15] MEDS ORDERED: PREGABALIN 50 MG CAP PO SCH (09:00)
[2019-02-15] MEDS ORDERED: CLOPIDOGREL BISULFATE 75 MG TAB PO SCH (09:00)
[2019-02-15] MEDS ORDERED: VENLAFAXINE HCL 75 MG TAB PO SCH (09:00)
[2019-02-15] MEDS ORDERED: FLUTICASONE PROPIONATE NASAL SPRAY NS SCH (09:00)
[2019-02-15] MEDS ORDERED: MULTIVITAMINS/MINERALS TAB PO SCH (09:00)
[2019-02-15] MEDS ORDERED: ASPIRIN 81 MG ENTERIC COATED PO SCH (09:00)
--- NOTE | 2019-02-15 10:00 | NUR ---
PATIENT DISCHARGED FROM FACILITY. PATIENT GATHERED ALL PERSONAL BELONGINGS, DISCHARGE INSTRUCTIONS AND FOLLOW UP INFORMATION. LEFT UNIT IN WHEELCHAIR AND WENT HOME VIA PRIVATE AUTO. NO SIGNS OF DISTRESS WHEN LEAVING FACILITY.
== END 2019-02-15 10:00 | disposition home or self-care (01) ==
LOC: ER 05:00 → ERHOLD 07:45 → MED/SURG3 15:42 → IMCU 20:16
PROVIDERS: ADMIT Internal Medicine; ATTEND Internal Medicine
DX: J01.00 Acute maxillary sinusitis, unspecified (principal); R20.0 Anesthesia of skin; I25.10 Atherosclerotic heart disease of native coronary artery without angina pectoris; R51 Headache; J30.2 Other seasonal allergic rhinitis; E78.5 Hyperlipidemia, unspecified; E11.42 Type 2 diabetes mellitus with diabetic polyneuropathy; J42 Unspecified chronic bronchitis; I11.9 Hypertensive heart disease without heart failure; Z87.891 Personal history of nicotine dependence; Z95.5 Presence of coronary angioplasty implant and graft; Z88.8 Allergy status to other drugs, medicaments and biological substances; Z79.82 Long term (current) use of aspirin; Z82.49 Family history of ischemic heart disease and other diseases of the circulatory system
CPT/HCPCS: 36415 ×2; 70450; 70551; 71045; 80053 ×2; 80061; 81001; 82550; 82553; 83735 ×2; 83880; 84100; 84443; 84484 ×2; 85025 ×2; 85610; 85730; 93005; 93306; 93880; 99285; G0378 ×2

== ENCOUNTER 2019-12-08 05:02 | Emergency (ER) | payer MEDICARE, OTHER ==
[~2019-12-08] VITALS: Ht 185.4 cm; Wt 102.1 kg
[~2019-12-08 05:02] MED LIST changes: +ACETAMINOPHEN325 M1 PO; +ATORVASTATIN CA10 MG PO; +LEVAQUIN500 MG PO; +LISINOPRIL10 MG PO; +ULTRAM50 MG PO; +XANAX0.5 MG PO
--- NOTE | 2019-12-08 05:25 | Emergency Department Note ---
History of Present Illnes History of Present Illness Chief Complaint: Chest Pain History of Present Illness This is a 79 year old male . Severity: moderate Duration (how long): week(s) Progression: worsening Chronicity: new Relieving factors: none Exacerbating factors: none Associated symptoms: Reports chest pain Previous service: medications given, one or more referrals, re-evaluation Past Medical/Family History Physician Review I have reviewed the patient's past medical and family history. Any updates have been documented here. Past Medical History Recent Fever: No Clinical Suspicion of Infectio: No New/Unexplained Change in Ment: No Past Medical History: Hypertension, Anxiety Other Medical History: HYPERLIPIDEMIA ANXIETY Other Surgery: HERNIA BACK Other Last Tetanus: UNKNOWN Review of Systems Review of Systems Constitutional: Reports diaphoresis EENTM: Reports nose congestion Cardiovascular: Reports no symptoms Respiratory: Reports cough Gastrointestinal: Reports no symptoms Genitourinary: Reports no symptoms Musculoskeletal: Reports no symptoms Integumentary: Reports no symptoms Neurological: Reports no symptoms Psychological: Reports no symptoms Endocrine: Reports no symptoms Hematological/Lymphatic: Reports no symptoms Physical Exam Related Data Allergies: Coded Allergies: cephalexin (Verified Allergy, Intermediate, UNKNOWN, 07/06/17) azelastine (Verified Allergy, Unknown, BODY ACHES, 04/03/18) Physical Exam CONSTITUTIONAL Constitutional: Present diaphoretic, Present ill appearing HENT HENT: Present normocephalic, Present atraumatic, Present oropharynx clear/moist, Present nose normal HENT L/R: Present left ext ear normal, Present right ext ear normal EYES Eyes: Reports PERRL, Reports conjunctivae normal NECK Neck: Present ROM normal PULMONARY Pulmonary: Present effort normal, Present breath sounds normal CARDIOVASCULAR Cardiovascular: Present regular rhythm, Present heart sounds normal, Present capillary refill normal, Present normal rate GASTROINTESTINAL Abdominal: Present soft, Present nontender, Present bowel sounds normal GENITOURINARY Genitourinary: Present exam deferred SKIN Skin: Present warm, Present dry MUSCULOSKELETAL Musculoskeletal: Present ROM normal NEUROLOGICAL Neurological: Present alert, Present oriented x 3, Present no gross motor or sensory deficits PSYCHOLOGICAL Psychological: Present mood/affect normal, Present judgement normal Results Laboratory Lab results reviewed: Yes Laboratory comments CBC : wnl CMP : troponin neg, low sodium , elevated Cr Imaging Imaging results reviewed: Yes Impressions [place] [address] Patient Name: LEONILA MARQUEZ MR #: [id number] : 1940 Age/Sex: 79/M Req #: [id number] Adm Physician: Ordered by: JANIE CHOW DO Report #: [id number] Location: ER Room/Bed: Procedure: [id number] CT/CT CHEST W Exam Date: 12/08/19 Exam Time: 929 REPORT STATUS: Signed EXAM: CT Chest WITH contrast- Pulmonary Embolism Protocol INDICATION: Cough, chest congestion COMPARISON: Chest radiograph of earlier the same day TECHNIQUE: Chest was scanned utilizing a multidetector helical scanner from the lung apex through the level of the diaphragm after administration of IV contrast. Thin section reconstructions were obtained with special concentration on the pulmonary arteries. Coronal and sagittal reformations were obtained. Pulmonary embolism protocol was performed. IV CONTRAST: 100mL Isovue 370 RADIATION DOSE: Total DLP: 510 mGy*cm. Dose modulation, iterative reconstruction, and/or weight based adjustment of the mA/kV was utilized to reduce the radiation dose to as low as reasonably achievable. COMPLICATIONS: None FINDINGS: PULMONARY ARTERIES: No filling defect is identified within the pulmonary arteries to the segmental level. Main pulmonary artery measures 3.6cm in diameter. LINES/ TUBES: None. LUNGS AND PLEURA: The central airways are patent. Multifocal predominantly peripheral groundglass opacities involve all lobes of the lungs. Mild bibasilar dependent subsegmental atelectasis. The nodular opacity seen on chest radiograph of earlier the same day corresponds with anterior left calcified pleural plaque. No pleural effusion or pneumothorax. HEART AND MEDIASTINUM: The thyroid gland is normal. No supraclavicular, axillary, mediastinal, or hilar lymphadenopathy. The heart is not enlarged. No pericardial effusion. Mild scattered atherosclerotic calcifications of the thoracic aorta. No right heart strain. UPPER ABDOMEN: No acute findings in the upper abdomen. BONES: No acute osseous injury. No suspicious lytic or blastic lesions. SOFT TISSUES: Unremarkable. IMPRESSION: Multifocal predominately peripheral groundglass opacities in a pattern concerning for viral pneumonia. No pulmonary embolism. Nodular opacity seen on chest radiograph of earlier the same day corresponds to anterior left calcified pleural plaque. 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 ACS, PE, costocondritis, Chest wall pain, COVID- 19 infection and pneumothorax considered. labs, imaging and EKG reviewed . Plan to discharge to home Assessment & Plan Final Impression: (1) URI (upper respiratory infection) (2) Abnormal renal function Depart Disposition: HOME, SELF-longterm Meds Active Scripts Azithromycin (Z-JOSE) 250 Mg Tablet, 1 PKG PO DIRECTED, #1 PKG 0 Refills Prov:EDI BROWNDO 12/08/19 Reported Medications Levofloxacin (LEVAQUIN) 500 Mg Tablet, 750 MG PO DAILY, TAB 02/15/19 Lisinopril (LISINOPRIL) 10 Mg Tablet, 10 MG PO DAILY, #30 TAB 02/15/19 Atorvastatin Calcium (ATORVASTATIN CALCIUM) 10 Mg Tablet, 10 MG PO HS, #30 TAB 02/15/19 Acetaminophen (ACETAMINOPHEN) 325 Mg Tablet, 650 MG PO Q6H PRN for pain for 5 Days, TAB 02/14/19 Tramadol Hcl (ULTRAM) 50 Mg Tablet, 50 MG PO Q6H PRN for pain, TAB 02/14/19 Alprazolam (XANAX) 0.5 Mg Tablet, 0.5 MG PO PRN for ANXIETY 02/14/19 Venlafaxine Hcl (VENLAFAXINE HCL) 75 Mg Tab, 75 MG PO DAILY, #30 TAB 03/29/18 [Flonase] No Conflict Check 03/29/18 Pregabalin (LYRICA) 75 Mg Cap, 100 MG DAILY, #30 CAP 03/29/18 Multivitamin (DAILY VITAMIN) 1 Each Tablet, PO DAILY 01/06/13 Aspirin (ASPIRIN) 81 Mg Tab.chew, 81 MG PO DAILY 01/06/13 JANIE CHOW DO Dec 08, 2019 05:24
[2019-12-08] MEDS ORDERED: IBUPROFEN 600 MG TAB PO STA (05:26)
[2019-12-08] MEDS ORDERED: ASPIRIN 81 MG CHEW TAB PO ONE (05:30)
[2019-12-08 05:54] LABS: BASOPHILS % 0.2 % (0.0-1.0); HEMATOCRIT 45.9 % (38.2-49.6); HEMOGLOBIN 15.4 g/dL (14.0-18.0); LYMPHOCYTES # (AUTO) 1.4 (1.0-3.2); LYMPHOCYTES % 15.2 % (18.0-39.1); MEAN CORPUSCULAR HEMOGLOBIN 28.9 pg (28-32); MEAN CORPUSCULAR HGB CONC 33.6 g/dL (31-35); MEAN CORPUSCULAR VOLUME 86.1 fL (81-99); MONOCYTES # (AUTO) 0.4 (0.2-0.8); MONOCYTES % 4.3 % (4.4-11.3); NEUTROPHILS # (AUTO) 7.3 (2.1-6.9); PLATELET COUNT 177 x10e3/uL (140-360); RED BLOOD COUNT 5.33 x10e6/uL (4.3-5.7); RED CELL DISTRIBUTION WIDTH 15.4 % (11.7-14.4)
--- NOTE | 2019-12-08 06:07 | Diagnostic Imaging Report ---
EXAMINATION: CHEST SINGLE (PORTABLE) INDICATION: Shortness of breath COMPARISON: None FINDINGS: AP view TUBES and LINES: None. LUNGS: Lungs are well inflated. Ill-defined 3.2 cm nodular opacity within the left midlung. PLEURA: No pleural effusion or pneumothorax. HEART AND MEDIASTINUM: The cardiomediastinal silhouette is unremarkable. BONES AND SOFT TISSUES: No acute osseous lesion. Soft tissues are unremarkable. UPPER ABDOMEN: No free air under the diaphragm. IMPRESSION: Ill-defined 3.2 cm left midlung nodular opacity. Further evaluation with routine chest CT is recommended. Signed by: Leonard Stacy MD on 12/08/2019 6:04 AM
[2019-12-08 06:22] LABS: CREATINE KINASE MB 1.6 ng/mL (0-5.0)
[2019-12-08 06:36] LABS: ALBUMIN 3.6 g/dL (3.5-5.0); ALBUMIN/GLOBULIN RATIO 0.9 (0.8-2.0); ANION GAP 16.2 mmol/L (8-16); CALCIUM 9.4 mg/dL (8.4-10.2); CREATININE, SERUM 1.31 mg/dL (0.72-1.25); POTASSIUM 4.2 mmol/L (3.5-5.1)
[2019-12-08] MEDS ORDERED: SODIUM CHLORIDE 0.9% 1000ML 1,000 ML IV SCH (09:00)
[2019-12-08] MEDS ORDERED: SODIUM CHLORIDE 0.9% 50ML 50 ML ONE (09:09)
[2019-12-08] MEDS ORDERED: IOPAMIDOL 370 MG/ML 200 ML INFUS..BTL INJ ONE (09:10)
--- NOTE | 2019-12-08 09:56 | Diagnostic Imaging Report ---
EXAM: CT Chest WITH contrast- Pulmonary Embolism Protocol INDICATION: Cough, chest congestion COMPARISON: Chest radiograph of earlier the same day TECHNIQUE: Chest was scanned utilizing a multidetector helical scanner from the lung apex through the level of the diaphragm after administration of IV contrast. Thin section reconstructions were obtained with special concentration on the pulmonary arteries. Coronal and sagittal reformations were obtained. Pulmonary embolism protocol was performed. IV CONTRAST: 100mL Isovue 370 RADIATION DOSE: Total DLP: 510 mGy*cm. Dose modulation, iterative reconstruction, and/or weight based adjustment of the mA/kV was utilized to reduce the radiation dose to as low as reasonably achievable. COMPLICATIONS: None FINDINGS: PULMONARY ARTERIES: No filling defect is identified within the pulmonary arteries to the segmental level. Main pulmonary artery measures 3.6cm in diameter. LINES/ TUBES: None. LUNGS AND PLEURA: The central airways are patent. Multifocal predominantly peripheral groundglass opacities involve all lobes of the lungs. Mild bibasilar dependent subsegmental atelectasis. The nodular opacity seen on chest radiograph of earlier the same day corresponds with anterior left calcified pleural plaque. No pleural effusion or pneumothorax. HEART AND MEDIASTINUM: The thyroid gland is normal. No supraclavicular, axillary, mediastinal, or hilar lymphadenopathy. The heart is not enlarged. No pericardial effusion. Mild scattered atherosclerotic calcifications of the thoracic aorta. No right heart strain. UPPER ABDOMEN: No acute findings in the upper abdomen. BONES: No acute osseous injury. No suspicious lytic or blastic lesions. SOFT TISSUES: Unremarkable. IMPRESSION: Multifocal predominately peripheral groundglass opacities in a pattern concerning for viral pneumonia. No pulmonary embolism. Nodular opacity seen on chest radiograph of earlier the same day corresponds to anterior left calcified pleural plaque. Signed by: Diandra Sánchez MD on 12/08/2019 9:52 AM
[2019-12-08] MEDS ORDERED: AZITHROMYCIN250 MG PO (10:19)
[2019-12-08 10:50] VITALS: BP 119/63
== END 2019-12-08 10:52 | disposition home or self-care (01) ==
LOC: ER 05:35
DX: U07.1 COVID-19 (principal); J06.9 Acute upper respiratory infection, unspecified; R07.89 Other chest pain; R94.4 Abnormal results of kidney function studies; R50.9 Fever, unspecified; R05 Cough; R51 Headache
CPT/HCPCS: 36415; 71045; 71260; 80053; 82550; 82553; 83880; 84484; 85025; 87635; 93005; 99284; J7030; Q9967

== ENCOUNTER 2019-12-12 04:32 | Emergency (ER) | payer MEDICARE ==
[~2019-12-12] VITALS: Ht 185.4 cm; Wt 102.1 kg
[~2019-12-12 04:32] MED LIST changes: +AZITHROMYCIN250 MG PO
[2019-12-12] MEDS ORDERED: AZITHROMYCIN 500MG/NS 250 ML 250 ML IV STA (04:38)
--- NOTE | 2019-12-12 04:38 | Emergency Department Note ---
History of Present Illnes History of Present Illness History of Present Illness This is a 79 year old male returns to the ED by EMS for worsening dyspnea secondary to presumed COVID-19 infection. Seen in bed 5 slightly dyspneic. 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 Any updates have been documented here. (JANIE CHOW DO) Past Medical History Recent Fever: Yes Clinical Suspicion of Infectio: Yes New/Unexplained Change in Ment: No Past Medical History: Hypertension, Anxiety Other Medical History: HYPERLIPIDEMIA ANXIETY Other Surgery: HERNIA BACK (JANIE CHOW DO) Social History Smoking Cessation: Never Smoker Alcohol Use: None Any Illegal Drug Use: No (JANIE CHOW DO) Other Last Tetanus: UNKNOWN (JANIE CHOW DO) Review of Systems Review of Systems Constitutional: Reports fever, Reports malaise EENTM: Reports no symptoms Cardiovascular: Reports no symptoms Respiratory: Reports cough, Reports dyspnea Gastrointestinal: Reports no symptoms Genitourinary: Reports no symptoms Musculoskeletal: Reports no symptoms Integumentary: Reports no symptoms Neurological: Reports no symptoms Psychological: Reports no symptoms Endocrine: Reports no symptoms Hematological/Lymphatic: Reports no symptoms (JANIE CHOW DO) Physical Exam Related Data Allergies: Coded Allergies: cephalexin (Verified Allergy, Intermediate, UNKNOWN, 07/06/17) azelastine (Verified Allergy, Unknown, BODY ACHES, 04/03/18) Triage Vital Signs Vital Signs Date Time Temp Pulse Resp B/P (MAP) Pulse Ox O2 Delivery O2 Flow Rate FiO2 12/12/19 04:40 102.1 108 19 135/71 91 Nasal Cannula 2.0 Vital signs reviewed: Yes (JANIE CHOW DO) Physical Exam CONSTITUTIONAL Constitutional: Present cachectic, Present distressed, Present ill appearing HENT HENT: Present normocephalic, Present atraumatic, Present oropharynx clear/moist, Present nose normal HENT L/R: Present left ext ear normal, Present right ext ear normal EYES Eyes: Reports PERRL, Reports conjunctivae normal NECK Neck: Present ROM normal PULMONARY Pulmonary: Present other CARDIOVASCULAR Cardiovascular: Present regular rhythm, Present heart sounds normal, Present capillary refill normal, Present normal rate GASTROINTESTINAL Abdominal: Present soft, Present nontender, Present bowel sounds normal GENITOURINARY Genitourinary: Present exam deferred SKIN Skin: Present warm, Present dry MUSCULOSKELETAL Musculoskeletal: Present ROM normal NEUROLOGICAL Neurological: Present alert, Present oriented x 3, Present no gross motor or sensory deficits PSYCHOLOGICAL Psychological: Present mood/affect normal, Present judgement normal (JANIE CHOW DO) Results Laboratory Lab results reviewed: Yes Laboratory comments low sodium (JANIE CHOW DO) Imaging Imaging results reviewed: Yes Impressions [place] [id number] Patient Name: LEONILA MARQUEZ MR #: [id number] : 1940 Age/Sex: 79/M Req #: [id number] Adm Physician: Ordered by: JANIE CHOW DO Report #: [id number] Location: ER Room/Bed: Procedure: [id number] DX/CHEST SINGLE (PORTABLE) Exam Date: Exam Time: REPORT STATUS: Signed EXAMINATION: CHEST SINGLE (PORTABLE) INDICATION: Shortness of breath COMPARISON: Radiograph 12/08/2019 FINDINGS: AP view TUBES and LINES: None. LUNGS: Interval slight increase in patchy pulmonary airspace disease. PLEURA: No pleural effusion or pneumothorax. HEART AND MEDIASTINUM: The cardiomediastinal silhouette is unremarkable. BONES AND SOFT TISSUES: No acute osseous lesion. Soft tissues are unremarkable. UPPER ABDOMEN: No free air under the diaphragm. IMPRESSION: Slight interval increase in pulmonary airspace disease concerning for viral pneumonia. 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: Interpreted by ED physician Date: Dec 12, 2019 Prior ECG tracings: reviewed Rhythm: sinus tachycardia Rate: tachycardia BPM: 104 QRS axis: normal ST segments normal: Yes T waves normal: Yes Pacin% capture Clinical Impression: non-specific ECG (JANIE CHOW DO) Critical Care Time Total Critical Care Time (min): 31 Critcal care necessary due to: respiratory failure Critcal care time spent by me: develop tx plan w patient/surrogate, discussion w primary provider, evaluation patient response to tx, examination of patient, order/perform tx or interventions, order/review laboratory studies, order/review radiographic studies, pulse oximetry, re-evaluation of patient condition (JANIE CHOW DO) Assessment & Plan Medical Decision Making MDM 79 yom presents with dyspea and hypoxia. Respiratory distress upon arrival. Diff Dx : PE, PTX, CHF, Sepsis, COVID-19 URI infection, ACS, ARDS, airway obstruction, Lung CA. Patient highly critical. Plan to admit transfer for ICU care/admission (JANIE CHOW DO) MDM 79-year-old male arrives to the ED for shortness of breath, testicle but +3 days ago. Patient require supplemental oxygen in the form of 3 L. Upon my evaluation patient is resting comfortably on supplemental oxygen area patient required transfer for continuity of care. Patient transferred to [facility] secondary to capacity. Patient stable at time of transfer. (EDI BROWN DO) Assessment & Plan Final Impression: (1) Upper respiratory tract infection due to COVID-19 virus (2) Hypoxia (3) Hyponatremia (JANIE CHOW DO) Home Meds Active Scripts Azithromycin (Z-JOSE) 250 Mg Tablet, 1 PKG PO DIRECTED, #1 PKG 0 Refills Prov:EDI BROWN DO 12/08/19 Reported Medications Levofloxacin (LEVAQUIN) 500 Mg Tablet, 750 MG PO DAILY, TAB 02/15/19 Lisinopril (LISINOPRIL) 10 Mg Tablet, 10 MG PO DAILY, #30 TAB 02/15/19 Atorvastatin Calcium (ATORVASTATIN CALCIUM) 10 Mg Tablet, 10 MG PO HS, #30 TAB 02/15/19 Acetaminophen (ACETAMINOPHEN) 325 Mg Tablet, 650 MG PO Q6H PRN for pain for 5 Days, TAB 02/14/19 Tramadol Hcl (ULTRAM) 50 Mg Tablet, 50 MG PO Q6H PRN for pain, TAB 02/14/19 Alprazolam (XANAX) 0.5 Mg Tablet, 0.5 MG PO PRN for ANXIETY 02/14/19 Venlafaxine Hcl (VENLAFAXINE HCL) 75 Mg Tab, 75 MG PO DAILY, #30 TAB 03/29/18 [Flonase] No Conflict Check 03/29/18 Pregabalin (LYRICA) 75 Mg Cap, 100 MG DAILY, #30 CAP 03/29/18 Multivitamin (DAILY VITAMIN) 1 Each Tablet, PO DAILY 01/06/13 Aspirin (ASPIRIN) 81 Mg Tab.chew, 81 MG PO DAILY 01/06/13 Physician Attestation Provider Attestation Patient reevaluated bedside, request the liters supplemental O2, patient is being transferred to the emergency department at [facility] in [place]. Doc to Doc given with the ER physician. (EDI BROWN DO) JANIE CHOW DO Dec 12, 2019 04:38 EDI BROWN DO Dec 12, 2019 10:14
[2019-12-12] MEDS ORDERED: ACETAMINOPHEN 325 MG TAB PO STA (04:40)
[2019-12-12] MEDS ORDERED: ACETAMINOPHEN 325 MG TAB ONE (04:47)
[2019-12-12 04:50] LABS: BASOPHILS % 0.2 % (0.0-1.0); HEMATOCRIT 45.7 % (38.2-49.6); HEMOGLOBIN 15.1 g/dL (14.0-18.0); LYMPHOCYTES # (AUTO) 0.7 (1.0-3.2); LYMPHOCYTES % 7.1 % (18.0-39.1); MEAN CORPUSCULAR HEMOGLOBIN 28.3 pg (28-32); MEAN CORPUSCULAR VOLUME 85.7 fL (81-99); MONOCYTES # (AUTO) 0.3 (0.2-0.8); MONOCYTES % 3.1 % (4.4-11.3); NEUTROPHILS % 88.9 % (38.7-80.0); PLATELET COUNT 242 x10e3/uL (140-360); RED BLOOD COUNT 5.33 x10e6/uL (4.3-5.7); RED CELL DISTRIBUTION WIDTH 15.5 % (11.7-14.4)
[2019-12-12 05:09] LABS: ALBUMIN 2.8 g/dL (3.5-5.0); ALBUMIN/GLOBULIN RATIO 0.6 (0.8-2.0); ANION GAP 16.2 mmol/L (8-16); CALCIUM 8.9 mg/dL (8.4-10.2); CREATININE, SERUM 1.2 mg/dL (0.72-1.25); POTASSIUM 4.2 mmol/L (3.5-5.1)
--- NOTE | 2019-12-12 05:34 | Diagnostic Imaging Report ---
EXAMINATION: CHEST SINGLE (PORTABLE) INDICATION: Shortness of breath COMPARISON: Radiograph 12/08/2019 FINDINGS: AP view TUBES and LINES: None. LUNGS: Interval slight increase in patchy pulmonary airspace disease. PLEURA: No pleural effusion or pneumothorax. HEART AND MEDIASTINUM: The cardiomediastinal silhouette is unremarkable. BONES AND SOFT TISSUES: No acute osseous lesion. Soft tissues are unremarkable. UPPER ABDOMEN: No free air under the diaphragm. IMPRESSION: Slight interval increase in pulmonary airspace disease concerning for viral pneumonia. Signed by: Leonard Stacy MD on 12/12/2019 5:31 AM
[2019-12-12 07:16] LABS: INR 0.91; PROTHROMBIN TIME 12.8 seconds (11.9-14.5)
[2019-12-12 07:17] LABS: PARTIAL THROMBOPLASTIN TIME 37.3 seconds (23.8-35.5)
[2019-12-12 07:26] LABS: CREATINE KINASE 97 IU/L (30-200)
--- NOTE | 2019-12-12 07:43 | NUR ---
CALLED [facility] REGARDING TRANSFER, STATED NO BEDS AND THEY HAVE PTS IN THEIR ER'S WITH NO ROOM WHO HAVE BEEN WAITING MUCH LONGER THAN OUR PT. NOTIFIED CHARGE OF UPDATE.
--- NOTE | 2019-12-12 08:16 | NUR ---
[facility] CALLED STATING [facility] MAY HAVE A BED. CALLED NUMBER GIVEN TO [facility]. [phone]
--- NOTE | 2019-12-12 09:16 | NUR ---
[facility] called and report to [facility] at [phone].
--- NOTE | 2019-12-12 09:19 | NUR ---
talked to pts and given update. got pts cell phone for him so he could talk to as well.
--- NOTE | 2019-12-12 10:12 | NUR ---
REPORT TO EMS BY
== END 2019-12-12 10:13 | disposition other institution (70) ==
LOC: ER 04:39
DX: U07.1 COVID-19 (principal); R09.02 Hypoxemia; J06.9 Acute upper respiratory infection, unspecified; E87.1 Hypo-osmolality and hyponatremia; I10 Essential (primary) hypertension; F41.9 Anxiety disorder, unspecified; E78.5 Hyperlipidemia, unspecified
CPT/HCPCS: 36415; 71045; 80053; 82550; 82553; 84484; 85025; 85610; 85730; 93005; 99284; J0456

== ENCOUNTER 2019-12-19 07:20 | Emergency (ER) | payer MEDICARE ==
[~2019-12-19] VITALS: Ht 185.4 cm; Wt 102.1 kg
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
[2019-12-19 07:50] LABS: BASOPHILS % 0.2 % (0.0-1.0); EOSINOPHILS # (AUTO) 0.1 (0.0-0.4); EOSINOPHILS % 1.4 % (0.0-6.0); HEMATOCRIT 45.2 % (38.2-49.6); HEMOGLOBIN 14.9 g/dL (14.0-18.0); LYMPHOCYTES # (AUTO) 0.7 (1.0-3.2); LYMPHOCYTES % 6.8 % (18.0-39.1); MEAN CORPUSCULAR HEMOGLOBIN 28.2 pg (28-32); MEAN CORPUSCULAR VOLUME 85.6 fL (81-99); MONOCYTES # (AUTO) 0.3 (0.2-0.8); MONOCYTES % 2.6 % (4.4-11.3); NEUTROPHILS # (AUTO) 8.5 (2.1-6.9); NEUTROPHILS % 87.1 % (38.7-80.0); PLATELET COUNT 359 x10e3/uL (140-360); RED BLOOD COUNT 5.28 x10e6/uL (4.3-5.7); RED CELL DISTRIBUTION WIDTH 14.9 % (11.7-14.4)
[2019-12-19 08:19] LABS: ALANINE AMINOTRANSFERASE 34 IU/L (0-55); ALBUMIN 2.4 g/dL (3.5-5.0); ALBUMIN/GLOBULIN RATIO 0.5 (0.8-2.0); ALKALINE PHOSPHATASE 90 IU/L (40-150); ANION GAP 16.3 mmol/L (8-16); BLOOD UREA NITROGEN 24 mg/dL (7-26); BUN/CREATININE RATIO 23 (6-25); CARBON DIOXIDE 20 mmol/L (22-29); CHLORIDE 104 mmol/L (98-107); CREATINE KINASE 47 IU/L (30-200); CREATININE, SERUM 1.06 mg/dL (0.72-1.25); EST GLOMERULAR FILTRATION RATE > 60 ML/MIN (60-); GLUCOSE 96 mg/dL (74-118); POTASSIUM 4.3 mmol/L (3.5-5.1); SODIUM 136 mmol/L (136-145)
--- NOTE | 2019-12-19 08:26 | NUR ---
PT REPORTS HE FEELS MUCH BETTER NOW AND HE WANTS HIS CALLED TO GO HOME. HE SAYS HE FEELS LESS ANXIOUS NOW. HE ONLY HAS A HEADACHE. HE REPORTS HE TOOK A XANAX PRIOR TO ARRIVAL AND IT HAS HELPTED.
--- NOTE | 2019-12-19 10:00 | NUR ---
PT LEFT AMA. VERBAL INFORMATION GIVEN BY THIS RN AND ROSA PANDEY.
== END 2019-12-19 10:08 | disposition home or self-care (01) ==
LOC: ER 07:30
DX: R07.9 Chest pain, unspecified (principal); I10 Essential (primary) hypertension; F41.9 Anxiety disorder, unspecified; E78.5 Hyperlipidemia, unspecified; Z86.19 Personal history of other infectious and parasitic diseases
CPT/HCPCS: 36415; 80053; 82550; 82553; 83880; 84484; 85025; 93005; 99284